=== PATIENT | male | born 1955 | race African-American/Black ===

== ENCOUNTER 2017-11-10 08:29 | Emergency (ER) | payer SELFPAY ==
[~2017-11-10] VITALS: Ht 172.7 cm; Wt 110.0 kg
[2017-11-10] MEDS ORDERED: METHYLPREDNISOLONE SOD SUCC 125 MG/2 ML VIAL IM ONE (09:45)
[2017-11-10 10:00] VITALS: BP 178/79
== END 2017-11-10 10:07 | disposition home or self-care (01) ==
LOC: ER 09:48
DX: L40.9 Psoriasis, unspecified (principal); I11.0 Hypertensive heart disease with heart failure; I50.9 Heart failure, unspecified; F17.200 Nicotine dependence, unspecified, uncomplicated; Z98.890 Other specified postprocedural states
CPT/HCPCS: 96372; 99283; J2930

== ENCOUNTER 2017-12-20 02:18 | Inpatient (IN) | payer SELFPAY ==
[~2017-12-20] VITALS: Ht 172.7 cm; Wt 105.7 kg
[2017-12-20] VITALS (8 sets, daily range): BP systolic 139–177; BP diastolic 86–123
[2017-12-20] MEDS ORDERED: FUROSEMIDE 40MG/4ML VIAL IVP ONE (02:30)
[2017-12-20 03:13] LABS: CHLORIDE 113 mEq/L (98-107)
[2017-12-20 03:29] LABS: BASOPHILS % 0.2 % (0.0-2.0); EOSINOPHILS % 3.1 % (0.0-5.0); HEMATOCRIT. 47.7 % (42.0-52.0); HEMOGLOBIN. 16.1 g/dL (14.0-18.0); LYMPHOCYTES % 18.9 % (20.0-50.0); MEAN CORPUSCULAR HEMOGLOBIN 31.4 pg (28.0-32.0); MEAN CORPUSCULAR VOLUME 92.7 fL (80.0-94.0); MEAN PLATELET VOLUME 9.3 fl (7.4-10.4); MONOCYTES % 7.2 % (2.0-8.0); NEUTROPHILS % 70.6 % (40.0-76.0); PLATELET 195 x1000/uL (130-400); RED BLOOD CELL COUNT 5.15 mill/uL (4.7-6.1); RED CELL DISTRIBUTION WIDTH 15.3 % (11.6-14.6)
[2017-12-20] MEDS ORDERED: ASPIRIN 325MG EC TABLET PO SCH (05:30)
[2017-12-20] MEDS ORDERED: ENOXAPARIN 120MG/0.8ML SYR SUBCUT SCH (06:00)
[2017-12-20] MEDS ORDERED: IPRATROPIUM/ALBUTEROL 0.5-3(2.5)MG/3ML NEB HHN PRN (09:00)
[2017-12-20] MEDS ORDERED: ACETAMINOPHEN 325MG TABLET PO PRN (09:00)
[2017-12-20] MEDS ORDERED: ONDANSETRON HCL 4MG/2ML INJ IV PRN (09:00)
[2017-12-20 10:44] LABS: CREATINE KINASE MB FRACTION 9.7 ng/mL (0.5-3.6)
[2017-12-20] MEDS ORDERED: LOSARTAN POTASSIUM 25 MG TABLET PO SCH (11:15)
[2017-12-20] MEDS: FUROSEMIDE 40MG/4ML VIAL IVP SCH ×2 (11:36→17:08)
[2017-12-20 13:46] LABS: CLARITY URINE CLEAR (CLEAR); COLOR URINE YELLOW (YELLOW); KETONES URINE NEGATIVE (NEGATIVE); LEUKOCYTE ESTERASE URINE NEGATIVE (NEGATIVE); NITRITE URINE NEGATIVE (NEGATIVE); OCCULT BLOOD URINE NEGATIVE (NEGATIVE); PROTEIN URINE NEGATIVE (NEGATIVE); SPECIFIC GRAVITY URINE 1.008 (1.005-1.030); UROBILINOGEN URINE 0.2 E.U./dL (0.2-1.0)
[2017-12-20] MEDS: NICOTINE 21MG PATCH TD SCH (14:23)
[2017-12-20] MEDS: PANTOT AC/MIN OIL/PET HY-PHL OINT 52.5GM (AQUAPHOR) TOP SCH (14:24)
[2017-12-20 14:49] LABS: *AMPHETAMINES SCREEN URINE NEGATIVE (NEGATIVE); *BARBITURATES SCREEN URINE NEGATIVE (NEGATIVE); *BENZODIAZEPINES SCREEN URINE NEGATIVE (NEGATIVE); *COCAINE SCREEN URINE NEGATIVE (NEGATIVE); CANNABINOID URINE SCREEN NEGATIVE (NEGATIVE); METHADONE URINE SCREEN NEGATIVE (NEGATIVE); OPIATES URINE SCREEN NEGATIVE (NEGATIVE); PHENCYCLIDINE URINE SCREEN NEGATIVE (NEGATIVE)
[2017-12-20] MEDS: THIAMINE HCL 100MG TABLET PO SCH (14:54)
[2017-12-20] MEDS: FOLIC ACID 1MG TABLET PO SCH (14:55)
[2017-12-20] MEDS ORDERED: CLONIDINE 0.1MG TABLET PO PRN (16:45)
[2017-12-20] MEDS: LOSARTAN POTASSIUM 50 MG TABLET PO SCH (21:49)
[2017-12-21] VITALS (12 sets, daily range): BP systolic 119–162; BP diastolic 69–104
[2017-12-21 07:33] LABS: BASOPHILS % 0.4 % (0.0-2.0); HEMATOCRIT. 48.3 % (42.0-52.0); HEMOGLOBIN. 15.8 g/dL (14.0-18.0); LYMPHOCYTES % 20.8 % (20.0-50.0); MEAN CORPUSCULAR HEMOGLOBIN 30.5 pg (28.0-32.0); MEAN CORPUSCULAR VOLUME 93.4 fL (80.0-94.0); MEAN PLATELET VOLUME 9.5 fl (7.4-10.4); MONOCYTES % 11.8 % (2.0-8.0); PLATELET 161 x1000/uL (130-400); RED BLOOD CELL COUNT 5.17 mill/uL (4.7-6.1); RED CELL DISTRIBUTION WIDTH 14.9 % (11.6-14.6)
[2017-12-21 07:41] LABS: CHLORIDE 107 mEq/L (98-107)
[2017-12-21] MEDS ORDERED: POTASSIUM CHLORIDE 20MEQ TABLET SR PO SCH (09:00)
[2017-12-21] MEDS: PANTOT AC/MIN OIL/PET HY-PHL OINT 52.5GM (AQUAPHOR) TOP SCH (09:08)
[2017-12-21] MEDS: NICOTINE 21MG PATCH TD SCH (09:09)
[2017-12-21] MEDS: FOLIC ACID 1MG TABLET PO SCH (09:09)
[2017-12-21] MEDS: LOSARTAN POTASSIUM 50 MG TABLET PO SCH ×2 (09:09→20:38)
[2017-12-21] MEDS: THIAMINE HCL 100MG TABLET PO SCH (09:09)
[2017-12-21] MEDS: FUROSEMIDE 40MG/4ML VIAL IVP SCH ×2 (09:09→16:43)
[2017-12-21] MEDS: MULTIVITAMINS,THER W-MINERALS TABLET PO SCH (09:09)
[2017-12-21] MEDS ORDERED: POTASSIUM CHLORIDE 20MEQ TABLET SR PO NR (11:00)
[2017-12-21] MEDS: POTASSIUM CHLORIDE 20MEQ TABLET SR PO SCH (16:43)
[2017-12-22] VITALS (7 sets, daily range): BP systolic 119–134; BP diastolic 51–90
[2017-12-22] MEDS: FUROSEMIDE 40MG/4ML VIAL IVP SCH (07:15)
[2017-12-22] MEDS: FOLIC ACID 1MG TABLET PO SCH (08:42)
[2017-12-22] MEDS: POTASSIUM CHLORIDE 20MEQ TABLET SR PO SCH (08:42)
[2017-12-22] MEDS: THIAMINE HCL 100MG TABLET PO SCH (08:43)
[2017-12-22] MEDS: LOSARTAN POTASSIUM 50 MG TABLET PO SCH (08:43)
[2017-12-22] MEDS: MULTIVITAMINS,THER W-MINERALS TABLET PO SCH (08:43)
[2017-12-22] MEDS: PANTOT AC/MIN OIL/PET HY-PHL OINT 52.5GM (AQUAPHOR) TOP SCH (08:43)
[2017-12-22] MEDS: NICOTINE 21MG PATCH TD SCH (08:43)
[2017-12-22] MEDS ORDERED: REGADENOSON 0.4 MG/5 ML IV ONE ×2 (09:30→10:32)
[2017-12-22 09:55] LABS: HEMATOCRIT. 48.7 % (42.0-52.0); HEMOGLOBIN. 15.8 g/dL (14.0-18.0); MEAN CORPUSCULAR HEMOGLOBIN 30.5 pg (28.0-32.0); MEAN CORPUSCULAR VOLUME 93.9 fL (80.0-94.0); MEAN PLATELET VOLUME 9.9 fl (7.4-10.4); PLATELET 173 x1000/uL (130-400); RED BLOOD CELL COUNT 5.18 mill/uL (4.7-6.1); RED CELL DISTRIBUTION WIDTH 14.8 % (11.6-14.6)
[2017-12-22 10:10] LABS: CHLORIDE 107 mEq/L (98-107)
[2017-12-22 10:40] LABS: CREATINE KINASE 68 IU/L (39-308); CREATINE KINASE MB FRACTION 1.1 ng/mL (0.5-3.6)
[2017-12-22 13:31] LABS: PLATELET ESTIMATE NORMAL
[2017-12-22] MEDS ORDERED: FUROSEMIDE 40MG TABLET PO SCH (21:00)
== END 2017-12-22 15:00 | disposition home or self-care (01) | DRG 190 ==
LOC: ER 02:23 → 3WST 05:22 → EDBEDREQ 05:25 → EDBEDREQSVC 05:25 → EDBEDREQTM 05:25 → ENRESERV 09:10
PROVIDERS: ADMIT Internal Medicine Nephrology; ATTEND Internal Medicine Nephrology
PROC: 5A09357 Assistance with Respiratory Ventilation, Less than 24 Consecutive Hours, Continuous Positive Airway Pressure (ICD-10-PCS; principal; 2017-12-20)
DX: I21.4 Non-ST elevation (NSTEMI) myocardial infarction (principal); J96.00 Acute respiratory failure, unspecified whether with hypoxia or hypercapnia; I50.43 Acute on chronic combined systolic (congestive) and diastolic (congestive) heart failure; E44.0 Moderate protein-calorie malnutrition; I11.0 Hypertensive heart disease with heart failure; E87.8 Other disorders of electrolyte and fluid balance, not elsewhere classified; E66.9 Obesity, unspecified; F10.10 Alcohol abuse, uncomplicated; F17.210 Nicotine dependence, cigarettes, uncomplicated; I27.20 Pulmonary hypertension, unspecified; I42.9 Cardiomyopathy, unspecified; Z68.35 Body mass index [BMI] 35.0-35.9, adult; Z71.6 Tobacco abuse counseling; Z71.3 Dietary counseling and surveillance
CPT/HCPCS: 36415; 71045; 78452; 80048; 80061; 80305; 82550; 82553; 83036; 83735; 83880; 84443; 84484; 85379; 93005; 93017; 93306; 93970; 94660; 96372; 96374; 99285; A9500; J1650; J1940; J2785

== ENCOUNTER 2018-02-01 03:54 | Inpatient (IN) | payer MEDICAID, OTHER ==
[~2018-02-01] VITALS: Ht 170.2 cm; Wt 98.4 kg
[2018-02-01 05:22] LABS: BASOPHILS % 0.1 % (0.0-2.0); EOSINOPHILS % 1.7 % (0.0-5.0); HEMATOCRIT. 48.9 % (42.0-52.0); LYMPHOCYTES % 5.9 % (20.0-50.0); MEAN CORPUSCULAR HEMOGLOBIN 30.4 pg (28.0-32.0); MEAN PLATELET VOLUME 10.1 fl (7.4-10.4); MONOCYTES % 8.7 % (2.0-8.0); NEUTROPHILS % 83.6 % (40.0-76.0); PLATELET 140 x1000/uL (130-400); RED BLOOD CELL COUNT 5.25 mill/uL (4.7-6.1); RED CELL DISTRIBUTION WIDTH 14.5 % (11.6-14.6)
[2018-02-01 05:25] LABS: CHLORIDE 109 mEq/L (98-107); INR 1.1; PROTHROMBIN TIME 11.3 sec (9.1-11.1)
[2018-02-01] MEDS ORDERED: FUROSEMIDE 100MG/10ML VIAL IVP ONE (05:45)
[2018-02-01 08:45] VITALS: BP 144/96
[2018-02-01] MEDS ORDERED: IPRATROPIUM/ALBUTEROL 0.5-3(2.5)MG/3ML NEB HHN PRN (09:00)
[2018-02-01] MEDS ORDERED: ACETAMINOPHEN 325MG TABLET PO PRN (09:00)
[2018-02-01] MEDS ORDERED: ONDANSETRON HCL 4MG/2ML INJ IV PRN (09:00)
[2018-02-01] MEDS: FUROSEMIDE 40MG/4ML VIAL IVP SCH ×2 (10:31→18:12)
[2018-02-01] MEDS: CARVEDILOL 6.25 MG TABLET PO SCH ×2 (10:31→21:56)
[2018-02-01] MEDS: LOSARTAN POTASSIUM 25 MG TABLET PO SCH (10:32)
[2018-02-01] MEDS: ENOXAPARIN 30MG/0.3ML SYR SUBCUT SCH ×2 (10:33→21:56)
[2018-02-01 12:00] VITALS: BP 130/89
[2018-02-01] MEDS ORDERED: POTASSIUM CHLORIDE 20MEQ/PACKET PO NR (14:15)
[2018-02-01 15:07] LABS: CLARITY URINE CLEAR (CLEAR); COLOR URINE YELLOW (YELLOW); KETONES URINE NEGATIVE (NEGATIVE); LEUKOCYTE ESTERASE URINE NEGATIVE (NEGATIVE); NITRITE URINE NEGATIVE (NEGATIVE); OCCULT BLOOD URINE NEGATIVE (NEGATIVE); PH URINE 5.5 (4.5-8.0); PROTEIN URINE NEGATIVE (NEGATIVE); SPECIFIC GRAVITY URINE 1.006 (1.005-1.030); UROBILINOGEN URINE 0.2 E.U./dL (0.2-1.0)
[2018-02-01 15:19] LABS: *AMPHETAMINES SCREEN URINE NEGATIVE (NEGATIVE); *BARBITURATES SCREEN URINE NEGATIVE (NEGATIVE); *BENZODIAZEPINES SCREEN URINE NEGATIVE (NEGATIVE)
[2018-02-01 15:20] LABS: *COCAINE SCREEN URINE NEGATIVE (NEGATIVE); CANNABINOID URINE SCREEN NEGATIVE (NEGATIVE); METHADONE URINE SCREEN NEGATIVE (NEGATIVE); OPIATES URINE SCREEN NEGATIVE (NEGATIVE); PHENCYCLIDINE URINE SCREEN NEGATIVE (NEGATIVE)
[2018-02-01 16:00] VITALS: BP 117/77
[2018-02-01] MEDS: POTASSIUM CHLORIDE 20MEQ TABLET SR PO SCH (17:00)
[2018-02-01 20:07] VITALS: BP 116/65
[2018-02-02] VITALS: BP 180/96
[2018-02-02 04:00] VITALS: BP 111/66
[2018-02-02 08:00] VITALS: BP 122/76
[2018-02-02 08:38] LABS: HEMATOCRIT. 48.7 % (42.0-52.0); MEAN CORPUSCULAR HEMOGLOBIN 30.6 pg (28.0-32.0); MEAN CORPUSCULAR VOLUME 93.1 fL (80.0-94.0); MEAN PLATELET VOLUME 10.5 fl (7.4-10.4); PLATELET 140 x1000/uL (130-400); RED BLOOD CELL COUNT 5.23 mill/uL (4.7-6.1); RED CELL DISTRIBUTION WIDTH 14.1 % (11.6-14.6)
[2018-02-02 08:46] LABS: CHLORIDE 107 mEq/L (98-107)
[2018-02-02 08:54] LABS: HDL CHOLESTEROL 41 mg/dL (40-59); LDL CHOLESTEROL 66 mg/dL (5-100)
[2018-02-02 08:55] LABS: CREATINE KINASE 52 IU/L (39-308)
[2018-02-02 08:56] LABS: CREATINE KINASE MB FRACTION < 1.0 ng/mL (0.5-3.6)
[2018-02-02] MEDS: POTASSIUM CHLORIDE 20MEQ TABLET SR PO SCH ×2 (09:45→17:00)
[2018-02-02] MEDS: LOSARTAN POTASSIUM 25 MG TABLET PO SCH (09:45)
[2018-02-02] MEDS: CARVEDILOL 6.25 MG TABLET PO SCH ×2 (09:46→21:09)
[2018-02-02] MEDS: ENOXAPARIN 30MG/0.3ML SYR SUBCUT SCH ×2 (09:47→21:10)
[2018-02-02] MEDS: FUROSEMIDE 40MG/4ML VIAL IVP SCH ×2 (09:48→17:45)
[2018-02-02 12:00] VITALS: BP 102/61
[2018-02-02 13:20] LABS: PLATELET ESTIMATE NORMAL
[2018-02-02 16:00] VITALS: BP 108/67
[2018-02-02] MEDS ORDERED: POTASSIUM CHLORIDE 20MEQ TABLET SR PO NR (16:15)
[2018-02-02] MEDS ORDERED: HYDROCODONE/ACETAMINOPHEN 5/325MG TABLET PO PRN (17:00)
[2018-02-02 20:00] VITALS: BP 110/65
[2018-02-03] VITALS: BP 115/65
[2018-02-03 04:00] VITALS: BP 105/62
[2018-02-03 06:42] LABS: CHLORIDE 106 mEq/L (98-107)
[2018-02-03 06:44] LABS: HEMATOCRIT. 49.1 % (42.0-52.0); HEMOGLOBIN. 16.1 g/dL (14.0-18.0); MEAN CORPUSCULAR HEMOGLOBIN 30.6 pg (28.0-32.0); MEAN CORPUSCULAR VOLUME 93.1 fL (80.0-94.0); MEAN PLATELET VOLUME 10.6 fl (7.4-10.4); PLATELET 156 x1000/uL (130-400); RED BLOOD CELL COUNT 5.27 mill/uL (4.7-6.1)
[2018-02-03 08:00] VITALS: BP 113/58
[2018-02-03] MEDS: LOSARTAN POTASSIUM 25 MG TABLET PO SCH (09:00)
[2018-02-03] MEDS: CARVEDILOL 6.25 MG TABLET PO SCH ×3 (10:14→21:48)
[2018-02-03] MEDS: POTASSIUM CHLORIDE 20MEQ TABLET SR PO SCH ×2 (10:14→17:39)
[2018-02-03] MEDS: ENOXAPARIN 30MG/0.3ML SYR SUBCUT SCH ×2 (10:14→21:48)
[2018-02-03] MEDS: FUROSEMIDE 40MG/4ML VIAL IVP SCH (10:14)
[2018-02-03 12:00] VITALS: BP 110/62
[2018-02-03 16:00] VITALS: BP 107/67
[2018-02-03] MEDS: FUROSEMIDE 40MG TABLET PO SCH (17:39)
[2018-02-03 17:53] LABS: PLATELET ESTIMATE NORMAL
[2018-02-03 20:00] VITALS: BP 148/92
[2018-02-04] VITALS: BP 125/72
[2018-02-04 04:00] VITALS: BP 111/65
[2018-02-04] MEDS: CARVEDILOL 6.25 MG TABLET PO SCH ×2 (06:30→14:41)
[2018-02-04] MEDS: FUROSEMIDE 40MG TABLET PO SCH (06:30)
[2018-02-04 08:00] VITALS: BP 118/65
[2018-02-04] MEDS: POTASSIUM CHLORIDE 20MEQ TABLET SR PO SCH (08:39)
[2018-02-04] MEDS: ENOXAPARIN 30MG/0.3ML SYR SUBCUT SCH (08:39)
[2018-02-04] MEDS: LOSARTAN POTASSIUM 25 MG TABLET PO SCH (08:39)
[2018-02-04 11:10] VITALS: BP 118/68
[2018-02-04 14:20] VITALS: BP 118/68
== END 2018-02-04 15:00 | disposition home or self-care (01) | DRG 194 ==
LOC: ER 03:54 → 5EST 05:41 → EDBEDREQ 05:43 → ENRESERV 07:05 → 5WST 15:29
PROVIDERS: ADMIT Internal Medicine; ATTEND Internal Medicine
PROC: 5A09357 Assistance with Respiratory Ventilation, Less than 24 Consecutive Hours, Continuous Positive Airway Pressure (ICD-10-PCS; principal; 2018-02-01)
DX: I11.0 Hypertensive heart disease with heart failure (principal); I47.2 Ventricular tachycardia; E87.2 Acidosis; E87.8 Other disorders of electrolyte and fluid balance, not elsewhere classified; I27.20 Pulmonary hypertension, unspecified; E44.1 Mild protein-calorie malnutrition; I50.23 Acute on chronic systolic (congestive) heart failure; I42.9 Cardiomyopathy, unspecified; E66.9 Obesity, unspecified; I35.1 Nonrheumatic aortic (valve) insufficiency; J06.9 Acute upper respiratory infection, unspecified; F10.10 Alcohol abuse, uncomplicated; F17.200 Nicotine dependence, unspecified, uncomplicated; Z68.34 Body mass index [BMI] 34.0-34.9, adult; Z71.6 Tobacco abuse counseling
CPT/HCPCS: 36415; 71045; 80061; 80305; 82550; 82553; 83605; 83735; 83880; 84145; 84443; 84484; 85379; 87804; 93005; 94660; 96374; 97162; 99291; J1650; J1940

== ENCOUNTER 2018-03-24 23:12 | Inpatient (IN) | payer MEDICAID, OTHER ==
[~2018-03-24] VITALS: Ht 170.2 cm; Wt 101.3 kg
[2018-03-24] MEDS ORDERED: FUROSEMIDE 40MG/4ML VIAL IV ONE (23:45)
[2018-03-25] VITALS (7 sets, daily range): BP systolic 141–163; BP diastolic 88–98
[2018-03-25 00:14] LABS: BASOPHILS % 0.2 % (0.0-2.0); EOSINOPHILS % 0.3 % (0.0-5.0); HEMATOCRIT. 45.8 % (42.0-52.0); LYMPHOCYTES % 9.1 % (20.0-50.0); MEAN CORPUSCULAR HEMOGLOBIN 29.5 pg (28.0-32.0); MEAN CORPUSCULAR VOLUME 89.9 fL (80.0-94.0); MEAN PLATELET VOLUME 9.5 fl (7.4-10.4); MONOCYTES % 8.6 % (2.0-8.0); NEUTROPHILS % 81.8 % (40.0-76.0); PLATELET 141 x1000/uL (130-400); RED BLOOD CELL COUNT 5.09 mill/uL (4.7-6.1); RED CELL DISTRIBUTION WIDTH 14.9 % (11.6-14.6)
[2018-03-25 00:35] LABS: CHLORIDE 111 mEq/L (98-107)
[2018-03-25] MEDS ORDERED: POTASSIUM CHLORIDE 20MEQ TABLET SR PO ONE (01:45)
[2018-03-25] MEDS ORDERED: IPRATROPIUM/ALBUTEROL 0.5-3(2.5)MG/3ML NEB INH PRN (02:45)
[2018-03-25] MEDS ORDERED: ACETAMINOPHEN 325MG TABLET PO PRN (02:45)
[2018-03-25] MEDS ORDERED: MAGNESIUM/ALUMINUM HYDROXIDE/SIMETHICONE 30ML UDC PO PRN (02:45)
[2018-03-25] MEDS ORDERED: CLONIDINE 0.1MG TABLET PO PRN (02:45)
[2018-03-25] MEDS ORDERED: ONDANSETRON HCL 4MG/2ML INJ IV PRN (02:45)
[2018-03-25] MEDS ORDERED: LEVOFLOXACIN 500MG PREMIX 100 ML IV SCH (05:00)
[2018-03-25] MEDS: POTASSIUM CHLORIDE 20MEQ TABLET SR PO SCH ×2 (10:53→17:15)
[2018-03-25] MEDS ORDERED: IPRATROPIUM/ALBUTEROL 0.5-3(2.5)MG/3ML NEB HHN SCH (12:30)
[2018-03-25] MEDS: GUAIFENESIN 600MG ER TABLET PO SCH ×2 (13:12→19:54)
[2018-03-25] MEDS: FUROSEMIDE 40MG/4ML VIAL IVP SCH ×2 (13:12→19:54)
[2018-03-25] MEDS: CARVEDILOL 12.5MG TABLET PO SCH ×2 (13:13→19:54)
[2018-03-25] MEDS: LOSARTAN POTASSIUM 25 MG TABLET PO SCH (13:13)
[2018-03-25] MEDS: SODIUM CHLORIDE 0.9% INJ 3ML FLUSH IVF SCH ×2 (13:16→22:42)
[2018-03-25] MEDS ORDERED: LORAZEPAM 2MG/ML CPJ IV PRN (13:30)
[2018-03-25] MEDS: METHYLPREDNISOLONE SOD SUCC 40 MG/ML VIAL IV SCH ×2 (15:10→22:41)
[2018-03-25] MEDS: FOLIC ACID 1MG TABLET PO SCH (15:10)
[2018-03-25] MEDS: FLUTICASONE PROPIONATE 50MCG/SPRAY BOTTLE BOTHNSTRLS SCH ×2 (15:11→22:42)
[2018-03-25] MEDS: MULTIVITAMINS,THER W-MINERALS TABLET PO SCH (15:11)
[2018-03-25] MEDS: THIAMINE HCL 100MG TABLET PO SCH (15:11)
[2018-03-25] MEDS: NICOTINE 21MG PATCH TD SCH (15:11)
[2018-03-25] MEDS: AZITHROMYCIN 500 MG in DEXT 5% WATER 250 ML IV SCH (15:12)
[2018-03-25] MEDS: CEFTRIAXONE 1 G PREMIX 50 ML IV SCH (15:12)
[2018-03-25] MEDS: IPRATROPIUM/ALBUTEROL 0.5-3(2.5)MG/3ML NEB HHN SCH ×2 (15:41→20:20)
[2018-03-25] MEDS: ACETYLCYSTEINE 200MG/ML 20% VIAL 4ML INH SCH (15:42)
[2018-03-26] VITALS (12 sets, daily range): BP systolic 107–165; BP diastolic 46–99
[2018-03-26] MEDS: IPRATROPIUM/ALBUTEROL 0.5-3(2.5)MG/3ML NEB HHN SCH ×6 (00:17→20:33)
[2018-03-26 05:26] LABS: BASOPHILS % 0.1 % (0.0-2.0); HEMATOCRIT. 47.3 % (42.0-52.0); HEMOGLOBIN. 15.7 g/dL (14.0-18.0); LYMPHOCYTES % 23.4 % (20.0-50.0); MEAN CORPUSCULAR HEMOGLOBIN 29.8 pg (28.0-32.0); MEAN CORPUSCULAR VOLUME 89.4 fL (80.0-94.0); MEAN PLATELET VOLUME 9.4 fl (7.4-10.4); MONOCYTES % 4.2 % (2.0-8.0); NEUTROPHILS % 72.3 % (40.0-76.0); PLATELET 133 x1000/uL (130-400); RED BLOOD CELL COUNT 5.29 mill/uL (4.7-6.1); RED CELL DISTRIBUTION WIDTH 14.8 % (11.6-14.6)
[2018-03-26 05:50] LABS: CHLORIDE 105 mEq/L (98-107)
[2018-03-26] MEDS: METHYLPREDNISOLONE SOD SUCC 40 MG/ML VIAL IV SCH (06:39)
[2018-03-26] MEDS: SODIUM CHLORIDE 0.9% INJ 3ML FLUSH IVF SCH ×3 (06:39→21:13)
[2018-03-26] MEDS: FUROSEMIDE 40MG/4ML VIAL IVP SCH ×2 (06:39→18:15)
[2018-03-26] MEDS: THIAMINE HCL 100MG TABLET PO SCH (08:09)
[2018-03-26] MEDS: POTASSIUM CHLORIDE 20MEQ TABLET SR PO SCH (08:09)
[2018-03-26] MEDS: FOLIC ACID 1MG TABLET PO SCH (08:09)
[2018-03-26] MEDS: GUAIFENESIN 600MG ER TABLET PO SCH ×2 (08:09→21:01)
[2018-03-26] MEDS: NICOTINE 21MG PATCH TD SCH (08:09)
[2018-03-26] MEDS: MULTIVITAMINS,THER W-MINERALS TABLET PO SCH (08:09)
[2018-03-26] MEDS: LOSARTAN POTASSIUM 25 MG TABLET PO SCH (08:10)
[2018-03-26] MEDS: CARVEDILOL 12.5MG TABLET PO SCH ×2 (08:11→21:03)
[2018-03-26] MEDS: FLUTICASONE PROPIONATE 50MCG/SPRAY BOTTLE BOTHNSTRLS SCH ×2 (08:11→21:00)
[2018-03-26] MEDS: ACETYLCYSTEINE 200MG/ML 20% VIAL 4ML INH SCH ×2 (08:25→16:26)
[2018-03-26 11:19] LABS: CLARITY URINE CLEAR (CLEAR); COLOR URINE YELLOW (YELLOW); KETONES URINE NEGATIVE (NEGATIVE); LEUKOCYTE ESTERASE URINE NEGATIVE (NEGATIVE); NITRITE URINE NEGATIVE (NEGATIVE); OCCULT BLOOD URINE NEGATIVE (NEGATIVE); PROTEIN URINE TRACE (NEGATIVE); SPECIFIC GRAVITY URINE 1.008 (1.005-1.030); UROBILINOGEN URINE 0.2 E.U./dL (0.2-1.0)
[2018-03-26] MEDS: CEFTRIAXONE 1 G PREMIX 50 ML IV SCH (15:01)
[2018-03-26] MEDS: AZITHROMYCIN 500 MG in DEXT 5% WATER 250 ML IV SCH (15:01)
[2018-03-26] MEDS: PREDNISONE 20MG TABLET PO SCH (18:15)
[2018-03-26] MEDS: ENOXAPARIN 30MG/0.3ML SYR SUBCUT SCH (21:01)
[2018-03-27] VITALS (11 sets, daily range): BP systolic 114–156; BP diastolic 75–96
[2018-03-27] MEDS: IPRATROPIUM/ALBUTEROL 0.5-3(2.5)MG/3ML NEB HHN SCH ×4 (00:15→12:27)
[2018-03-27 06:15] LABS: BASOPHILS % 0.2 % (0.0-2.0); HEMATOCRIT. 49.3 % (42.0-52.0); HEMOGLOBIN. 16.3 g/dL (14.0-18.0); LYMPHOCYTES % 23.7 % (20.0-50.0); MEAN CORPUSCULAR HEMOGLOBIN 29.5 pg (28.0-32.0); MEAN CORPUSCULAR VOLUME 89.2 fL (80.0-94.0); MEAN PLATELET VOLUME 9.9 fl (7.4-10.4); MONOCYTES % 10.3 % (2.0-8.0); NEUTROPHILS % 65.8 % (40.0-76.0); PLATELET 144 x1000/uL (130-400); RED BLOOD CELL COUNT 5.52 mill/uL (4.7-6.1); RED CELL DISTRIBUTION WIDTH 14.4 % (11.6-14.6)
[2018-03-27] MEDS: FUROSEMIDE 40MG/4ML VIAL IVP SCH (06:51)
[2018-03-27] MEDS: SODIUM CHLORIDE 0.9% INJ 3ML FLUSH IVF SCH ×2 (06:51→13:11)
[2018-03-27 07:38] LABS: CHLORIDE 104 mEq/L (98-107)
[2018-03-27] MEDS: THIAMINE HCL 100MG TABLET PO SCH (08:23)
[2018-03-27] MEDS: FOLIC ACID 1MG TABLET PO SCH (08:23)
[2018-03-27] MEDS: NICOTINE 21MG PATCH TD SCH (08:24)
[2018-03-27] MEDS: CARVEDILOL 12.5MG TABLET PO SCH (08:24)
[2018-03-27] MEDS: LOSARTAN POTASSIUM 25 MG TABLET PO SCH (08:24)
[2018-03-27] MEDS: GUAIFENESIN 600MG ER TABLET PO SCH (08:24)
[2018-03-27] MEDS: PREDNISONE 20MG TABLET PO SCH (08:24)
[2018-03-27] MEDS: MULTIVITAMINS,THER W-MINERALS TABLET PO SCH (08:24)
[2018-03-27] MEDS: ENOXAPARIN 30MG/0.3ML SYR SUBCUT SCH (08:25)
[2018-03-27] MEDS: FLUTICASONE PROPIONATE 50MCG/SPRAY BOTTLE BOTHNSTRLS SCH (08:25)
[2018-03-27] MEDS ORDERED: POTASSIUM CHLORIDE 20MEQ TABLET SR PO SCH (09:00)
[2018-03-27] MEDS: ACETYLCYSTEINE 200MG/ML 20% VIAL 4ML INH SCH (09:07)
[2018-03-27] MEDS ORDERED: INFLUENZA VIRUS VACCINE(AFLURIA) 0.5ML SYR IM ONE (12:45)
[2018-03-27] MEDS: AZITHROMYCIN 500 MG in DEXT 5% WATER 250 ML IV SCH (13:11)
[2018-03-27] MEDS: CEFTRIAXONE 1 G PREMIX 50 ML IV SCH (13:11)
[2018-03-27] MEDS ORDERED: PNEUMOCOCCAL 23-VAL P-SAC VAC 0.5 ML IM ONE (13:15)
[2018-03-27] MEDS ORDERED: PREDNISONE 20MG TABLET PO SCH (17:00)
[2018-03-27] MEDS ORDERED: FUROSEMIDE 40MG TABLET PO SCH (21:00)
[2018-03-28] MEDS ORDERED: PREDNISONE 20MG TABLET PO SCH (09:00)
[2018-03-28] MEDS ORDERED: AZITHROMYCIN 500 MG TABLET PO SCH (09:00)
== END 2018-03-27 17:18 | disposition home health service (06) | DRG 140 ==
LOC: ER 23:30 → EDBEDREQ 03-25 01:38 → EDBEDREQSVC 03-25 01:38 → EDBEDREQTM 03-25 01:38 → EDBEDREQDT 03-25 01:38 → 5EST 03-25 10:18 → ENRESERV 03-25 10:18
PROVIDERS: ADMIT Internal Medicine; ATTEND Internal Medicine
PROC: 5A09357 Assistance with Respiratory Ventilation, Less than 24 Consecutive Hours, Continuous Positive Airway Pressure (ICD-10-PCS; principal; 2018-03-24)
DX: J44.1 Chronic obstructive pulmonary disease with (acute) exacerbation (principal); J96.00 Acute respiratory failure, unspecified whether with hypoxia or hypercapnia; I50.43 Acute on chronic combined systolic (congestive) and diastolic (congestive) heart failure; I27.20 Pulmonary hypertension, unspecified; E46 Unspecified protein-calorie malnutrition; R65.10 Systemic inflammatory response syndrome (SIRS) of non-infectious origin without acute organ dysfunction; I42.9 Cardiomyopathy, unspecified; I11.0 Hypertensive heart disease with heart failure; E87.6 Hypokalemia; Z91.14 Patient's other noncompliance with medication regimen; E66.9 Obesity, unspecified; E11.9 Type 2 diabetes mellitus without complications; F10.10 Alcohol abuse, uncomplicated; F17.210 Nicotine dependence, cigarettes, uncomplicated; I50.82 Biventricular heart failure; J20.9 Acute bronchitis, unspecified; Z68.35 Body mass index [BMI] 35.0-35.9, adult
CPT/HCPCS: 36415; 71045; 80048; 83735; 83880; 84484; 85379; 87070; 87804; 90686; 90732; 93005; 93306; 93970; 94640; 94660; 96365; 96366; 96375; 99291; J0456; J0696; J1650; J1940; J1956; J2920; J7050; J7060; J7512; J7608; J7620

== ENCOUNTER 2018-09-07 02:31 | Inpatient (IN) | payer MEDICAID ==
[~2018-09-07] VITALS: Ht 165.1 cm; Wt 107.2 kg
[2018-09-07] VITALS (11 sets, daily range): BP systolic 110–136; BP diastolic 61–97
[~2018-09-07 02:31] MED LIST: FURO-151 PO
[2018-09-07] MEDS ORDERED: SODIUM CHLORIDE 0.9% 1,000 ML IV ONE (02:51)
[2018-09-07] MEDS ORDERED: DILTIAZEM HCL 5MG/ML 5ML VIAL IV ONE ×2 (03:00→03:30)
[2018-09-07 03:09] LABS: BASOPHILS % 0.8 % (0.0-2.0); EOSINOPHILS % 1.1 % (0.0-5.0); HEMATOCRIT. 42.9 % (42.0-52.0); HEMOGLOBIN. 14.2 g/dL (14.0-18.0); LYMPHOCYTES % 28.8 % (20.0-50.0); MEAN CORPUSCULAR HEMOGLOBIN 29.4 pg (28.0-32.0); MEAN CORPUSCULAR VOLUME 88.7 fL (80.0-94.0); MEAN PLATELET VOLUME 9.5 fl (7.4-10.4); MONOCYTES % 9.4 % (2.0-8.0); NEUTROPHILS % 59.9 % (40.0-76.0); PLATELET 151 x1000/uL (130-400); RED BLOOD CELL COUNT 4.84 mill/uL (4.7-6.1); RED CELL DISTRIBUTION WIDTH 13.8 % (11.6-14.6)
[2018-09-07 03:12] LABS: CHLORIDE 115 mEq/L (98-107)
[2018-09-07 03:15] LABS: INR 1.2; PARTIAL THROMBOPLASTIN TIME 30.8 sec (23.4-31.0); PROTHROMBIN TIME 11.9 sec (9.6-11.0)
[2018-09-07] MEDS ORDERED: DILTIAZEM HCL 125 MG in DEXT 5% WATER 100 ML IV ONE ×2 (03:30→03:45)
[2018-09-07] MEDS ORDERED: DIGOXIN 500MCG/2ML AMP IV ONE (03:45)
[2018-09-07] MEDS ORDERED: FUROSEMIDE 40MG/4ML VIAL IVP SCH (10:30)
[2018-09-07 11:25] LABS: BG BASE EXCESS -5.9 mmol/L (-2.0-2.0); BG BILEVEL POS AIRWAY PRESSURE 15/5; BG CARBOXYHEMOGLOBIN 0.4 % (0.5-1.5); BG DEOXYHEMOGLOBIN 1.1 % (0.0-5.0); BG FRACTION INSPIRED OXYGEN 100; BG HCO3 ACT 18.3 mmol/L (22.0-26.0); BG METHEMOGLOBIN 0.3 % (0.0-1.5); BG OXYGEN SATURATION 98.9 % (92.0-98.5); BG OXYHEMOGLOBIN 98.2 % (94.0-97.0); BG PCO2 32.1 mmHg (35.0-45.0); BG PH 7.373 (7.350-7.450); BG PO2 157.7 mmHg (75.0-100.0); BG SAMPLE SITE RIGHT RADIAL; BG VENT MODE MASK - BIPAP; BG VENT RATE 16 set
[2018-09-07] MEDS ORDERED: DILTIAZEM HCL 125 MG in DEXT 5% WATER 100 ML IV SCH (11:30)
[2018-09-07] MEDS: ENOXAPARIN 120MG/0.8ML SYR SUBCUT SCH ×2 (11:43→21:38)
[2018-09-07] MEDS: POTASSIUM CHLORIDE 10MEQ TABLET SR PO SCH (11:43)
[2018-09-07] MEDS: LISINOPRIL 10MG TABLET PO SCH (11:44)
[2018-09-07] MEDS ORDERED: CARVEDILOL 6.25 MG TABLET PO NR (14:00)
[2018-09-07] MEDS: DILTIAZEM HCL 30MG TABLET PO SCH ×2 (14:13→22:34)
[2018-09-07] MEDS: DILTIAZEM HCL 125 MG in DEXT 5% WATER 100 ML IV SCH (14:13)
[2018-09-07] MEDS: FUROSEMIDE 40MG/4ML VIAL IVP SCH (16:49)
[2018-09-07] MEDS: CARVEDILOL 6.25 MG TABLET PO SCH (21:38)
[2018-09-08] VITALS (12 sets, daily range): BP systolic 102–145; BP diastolic 55–99
[2018-09-08] MEDS: DILTIAZEM HCL 30MG TABLET PO SCH ×3 (06:41→22:32)
[2018-09-08] MEDS: FUROSEMIDE 40MG/4ML VIAL IVP SCH ×2 (06:41→16:39)
[2018-09-08 06:48] LABS: BASOPHILS % 0.5 % (0.0-2.0); EOSINOPHILS % 2.1 % (0.0-5.0); HEMATOCRIT. 41.3 % (42.0-52.0); HEMOGLOBIN. 13.9 g/dL (14.0-18.0); LYMPHOCYTES % 24.5 % (20.0-50.0); MEAN CORPUSCULAR HEMOGLOBIN 29.5 pg (28.0-32.0); MEAN CORPUSCULAR VOLUME 87.6 fL (80.0-94.0); MONOCYTES % 9.6 % (2.0-8.0); NEUTROPHILS % 63.3 % (40.0-76.0); PLATELET 141 x1000/uL (130-400); RED BLOOD CELL COUNT 4.72 mill/uL (4.7-6.1); RED CELL DISTRIBUTION WIDTH 13.5 % (11.6-14.6)
[2018-09-08 06:52] LABS: CHLORIDE 112 mEq/L (98-107)
[2018-09-08] MEDS: LISINOPRIL 10MG TABLET PO SCH ×2 (09:00→11:02)
[2018-09-08] MEDS: CARVEDILOL 6.25 MG TABLET PO SCH ×3 (09:00→21:52)
[2018-09-08] MEDS: POTASSIUM CHLORIDE 10MEQ TABLET SR PO SCH (09:36)
[2018-09-08] MEDS: ENOXAPARIN 120MG/0.8ML SYR SUBCUT SCH ×2 (09:36→21:53)
[2018-09-09] VITALS (10 sets, daily range): BP systolic 99–137; BP diastolic 54–77
[2018-09-09] MEDS: DILTIAZEM HCL 125 MG in DEXT 5% WATER 100 ML IV SCH (02:31)
[2018-09-09 06:27] LABS: BASOPHILS % 0.4 % (0.0-2.0); EOSINOPHILS % 1.8 % (0.0-5.0); HEMATOCRIT. 43.2 % (42.0-52.0); HEMOGLOBIN. 14.5 g/dL (14.0-18.0); LYMPHOCYTES % 28.6 % (20.0-50.0); MEAN CORPUSCULAR HEMOGLOBIN 29.6 pg (28.0-32.0); MEAN CORPUSCULAR VOLUME 88.2 fL (80.0-94.0); MEAN PLATELET VOLUME 9.7 fl (7.4-10.4); MONOCYTES % 11.5 % (2.0-8.0); NEUTROPHILS % 57.7 % (40.0-76.0); PLATELET 146 x1000/uL (130-400); RED CELL DISTRIBUTION WIDTH 13.2 % (11.6-14.6)
[2018-09-09 06:30] LABS: CHLORIDE 110 mEq/L (98-107)
[2018-09-09] MEDS: DILTIAZEM HCL 30MG TABLET PO SCH (06:33)
[2018-09-09] MEDS: FUROSEMIDE 40MG/4ML VIAL IVP SCH ×2 (06:44→16:29)
[2018-09-09] MEDS: POTASSIUM CHLORIDE 20MEQ TABLET SR PO SCH ×2 (09:17→16:29)
[2018-09-09] MEDS: LISINOPRIL 10MG TABLET PO SCH (09:17)
[2018-09-09] MEDS: CARVEDILOL 6.25 MG TABLET PO SCH ×2 (09:17→20:15)
[2018-09-09] MEDS: ASPIRIN 81MG EC TABLET PO SCH (09:17)
[2018-09-09] MEDS: ENOXAPARIN 120MG/0.8ML SYR SUBCUT SCH ×2 (09:19→20:15)
[2018-09-09] MEDS: DILTIAZEM HCL 60MG TABLET PO SCH ×2 (13:25→21:10)
[2018-09-09] MEDS ORDERED: CEFTRIAXONE 1 G PREMIX 50 ML IV SCH (18:00)
[2018-09-09] MEDS ORDERED: AZITHROMYCIN 500 MG in DEXT 5% WATER 250 ML IV SCH (19:00)
[2018-09-10] VITALS (9 sets, daily range): BP systolic 113–126; BP diastolic 66–81
[2018-09-10] MEDS: DILTIAZEM HCL 60MG TABLET PO SCH ×2 (05:55→14:08)
[2018-09-10 06:50] LABS: BASOPHILS % 0.6 % (0.0-2.0); HEMATOCRIT. 44.8 % (42.0-52.0); HEMOGLOBIN. 14.9 g/dL (14.0-18.0); LYMPHOCYTES % 27.6 % (20.0-50.0); MEAN CORPUSCULAR HEMOGLOBIN 29.5 pg (28.0-32.0); MEAN CORPUSCULAR VOLUME 88.8 fL (80.0-94.0); MEAN PLATELET VOLUME 9.9 fl (7.4-10.4); NEUTROPHILS % 55.8 % (40.0-76.0); PLATELET 167 x1000/uL (130-400); RED BLOOD CELL COUNT 5.04 mill/uL (4.7-6.1); RED CELL DISTRIBUTION WIDTH 13.6 % (11.6-14.6)
[2018-09-10 07:07] LABS: CHLORIDE 107 mEq/L (98-107)
[2018-09-10] MEDS: FUROSEMIDE 40MG/4ML VIAL IVP SCH (08:41)
[2018-09-10] MEDS: ASPIRIN 81MG EC TABLET PO SCH (08:43)
[2018-09-10] MEDS: LISINOPRIL 10MG TABLET PO SCH (08:43)
[2018-09-10] MEDS: CARVEDILOL 6.25 MG TABLET PO SCH (08:43)
[2018-09-10] MEDS: POTASSIUM CHLORIDE 20MEQ TABLET SR PO SCH (08:43)
[2018-09-10] MEDS: ENOXAPARIN 120MG/0.8ML SYR SUBCUT SCH (08:44)
== END 2018-09-10 15:20 | disposition home or self-care (01) | DRG 194 ==
LOC: ER 02:31 → 3WST 06:40 → EDBEDREQTM 06:42 → EDBEDREQSVC 06:42 → CANRESERV 07:40 → ENRESERV 07:40 → EDBEDREQSVC 08:26 → ENRESERV 08:27
PROVIDERS: ADMIT Internal Medicine; ATTEND Internal Medicine
PROC: 5A09357 Assistance with Respiratory Ventilation, Less than 24 Consecutive Hours, Continuous Positive Airway Pressure (ICD-10-PCS; principal; 2018-09-07)
PROC: 5A09357 Assistance with Respiratory Ventilation, Less than 24 Consecutive Hours, Continuous Positive Airway Pressure (ICD-10-PCS; 2018-09-08)
DX: I11.0 Hypertensive heart disease with heart failure (principal); J96.01 Acute respiratory failure with hypoxia; I47.2 Ventricular tachycardia; J18.9 Pneumonia, unspecified organism; I50.23 Acute on chronic systolic (congestive) heart failure; I48.1 Persistent atrial fibrillation; I08.0 Rheumatic disorders of both mitral and aortic valves; E87.6 Hypokalemia; I25.5 Ischemic cardiomyopathy; E66.09 Other obesity due to excess calories; F17.200 Nicotine dependence, unspecified, uncomplicated; Z79.82 Long term (current) use of aspirin; Z79.899 Other long term (current) drug therapy; Z68.39 Body mass index [BMI] 39.0-39.9, adult
CPT/HCPCS: 36415; 36600; 71045; 80048; 82375; 82805; 83735; 83880; 84484; 93005; 93306; 93970; 94660; 96365; 96375; 97162; 99291; J0456; J0696; J1160; J1650; J1940; J3490; J7030; J7060

== ENCOUNTER 2018-09-28 02:33 | Inpatient (IN) | payer MEDICAID ==
[2018-09-28] VITALS (9 sets, daily range): BP systolic 109–148; BP diastolic 60–101
[~2018-09-28] VITALS: Ht 152.4 cm; Wt 102.2 kg
[2018-09-28] MEDS ORDERED: DILTIAZEM HCL 5MG/ML 5ML VIAL IV ONE (02:45)
[2018-09-28] MEDS ORDERED: FUROSEMIDE 40MG/4ML VIAL IV ONE (02:45)
[2018-09-28] MEDS ORDERED: NITROGLYCERIN 50MG PREMIX 250 ML IV ONE (02:45)
[2018-09-28 03:24] LABS: BASOPHILS % 0.5 % (0.0-2.0); EOSINOPHILS % 1.9 % (0.0-5.0); HEMATOCRIT. 46.4 % (42.0-52.0); HEMOGLOBIN. 15.4 g/dL (14.0-18.0); LYMPHOCYTES % 36.7 % (20.0-50.0); MEAN CORPUSCULAR HEMOGLOBIN 29.2 pg (28.0-32.0); MEAN CORPUSCULAR VOLUME 88.2 fL (80.0-94.0); MEAN PLATELET VOLUME 10.2 fl (7.4-10.4); MONOCYTES % 10.8 % (2.0-8.0); NEUTROPHILS % 50.1 % (40.0-76.0); PLATELET 213 x1000/uL (130-400); RED BLOOD CELL COUNT 5.26 mill/uL (4.7-6.1); RED CELL DISTRIBUTION WIDTH 13.5 % (11.6-14.6)
[2018-09-28 03:35] LABS: CHLORIDE 117 mEq/L (98-107)
[2018-09-28 03:39] LABS: ETHANOL BLOOD < 10 mg/dL
[2018-09-28 03:45] LABS: T4 FREE 1.04 ng/dL (0.76-1.46)
[2018-09-28] MEDS ORDERED: DILTIAZEM HCL 5MG/ML 5ML VIAL IV NR (03:45)
[2018-09-28 04:56] LABS: PHENCYCLIDINE URINE SCREEN NEGATIVE (NEGATIVE)
[2018-09-28 04:58] LABS: *AMPHETAMINES SCREEN URINE NEGATIVE (NEGATIVE); *BARBITURATES SCREEN URINE NEGATIVE (NEGATIVE); *BENZODIAZEPINES SCREEN URINE NEGATIVE (NEGATIVE); *COCAINE SCREEN URINE NEGATIVE (NEGATIVE); CANNABINOID URINE SCREEN NEGATIVE (NEGATIVE); OPIATES URINE SCREEN NEGATIVE (NEGATIVE)
[2018-09-28 08:30] LABS: METHADONE URINE SCREEN NEGATIVE (NEGATIVE)
[2018-09-28] MEDS ORDERED: ENOXAPARIN 100MG/ML SYR SUBCUT SCH (14:00)
[2018-09-28] MEDS: FUROSEMIDE 40MG/4ML VIAL IVP SCH (14:21)
[2018-09-28] MEDS: POTASSIUM CHLORIDE 20MEQ TABLET SR PO SCH (14:21)
[2018-09-28] MEDS: DILTIAZEM HCL 60MG TABLET PO SCH ×2 (14:22→21:36)
[2018-09-28 15:47] LABS: BG BASE EXCESS -1.7 mmol/L (-2.0-2.0); BG BILEVEL POS AIRWAY PRESSURE 15/5; BG CARBOXYHEMOGLOBIN 0.5 % (0.5-1.5); BG DEOXYHEMOGLOBIN 2.5 % (0.0-5.0); BG FRACTION INSPIRED OXYGEN 50; BG HCO3 ACT 22.6 mmol/L (22.0-26.0); BG METHEMOGLOBIN 0.4 % (0.0-1.5); BG OXYGEN SATURATION 97.5 % (92.0-98.5); BG OXYHEMOGLOBIN 96.6 % (94.0-97.0); BG PCO2 37.3 mmHg (35.0-45.0); BG PH 7.401 (7.350-7.450); BG PO2 97.2 mmHg (75.0-100.0); BG SAMPLE SITE RIGHT BRACHIAL; BG TOTAL HEMOGLOBIN 15.1 g/dL (12.0-18.0); BG VENT MODE MASK - BIPAP
[2018-09-28] MEDS: ENOXAPARIN 100MG/ML SYR SUBCUT SCH (21:37)
[2018-09-29] VITALS (12 sets, daily range): BP systolic 104–139; BP diastolic 46–89
[2018-09-29] MEDS: DILTIAZEM HCL 60MG TABLET PO SCH (06:18)
[2018-09-29] MEDS: FUROSEMIDE 40MG/4ML VIAL IVP SCH ×2 (06:18→16:19)
[2018-09-29 06:30] LABS: BASOPHILS % 0.5 % (0.0-2.0); EOSINOPHILS % 2.1 % (0.0-5.0); HEMATOCRIT. 43.5 % (42.0-52.0); LYMPHOCYTES % 25.6 % (20.0-50.0); MEAN CORPUSCULAR HEMOGLOBIN 28.6 pg (28.0-32.0); MEAN CORPUSCULAR VOLUME 88.6 fL (80.0-94.0); MEAN PLATELET VOLUME 10.3 fl (7.4-10.4); MONOCYTES % 9.9 % (2.0-8.0); NEUTROPHILS % 61.9 % (40.0-76.0); PLATELET 159 x1000/uL (130-400); RED BLOOD CELL COUNT 4.91 mill/uL (4.7-6.1); RED CELL DISTRIBUTION WIDTH 13.7 % (11.6-14.6)
[2018-09-29 06:35] LABS: CHLORIDE 114 mEq/L (98-107)
[2018-09-29 06:36] LABS: INR 1.2; PROTHROMBIN TIME 12.6 sec (9.6-11.0)
[2018-09-29] MEDS: POTASSIUM CHLORIDE 20MEQ TABLET SR PO SCH (08:07)
[2018-09-29] MEDS: ENOXAPARIN 100MG/ML SYR SUBCUT SCH ×2 (08:08→21:55)
[2018-09-29] MEDS: DILTIAZEM HCL 90MG TABLET PO SCH ×2 (14:23→21:55)
[2018-09-29] MEDS: TRAZODONE HCL 50MG TABLET PO SCH (21:55)
[2018-09-30] VITALS (13 sets, daily range): BP systolic 101–134; BP diastolic 52–93
[2018-09-30] MEDS: FUROSEMIDE 40MG/4ML VIAL IVP SCH ×2 (06:21→17:09)
[2018-09-30] MEDS: DILTIAZEM HCL 90MG TABLET PO SCH ×3 (06:21→21:08)
[2018-09-30 06:42] LABS: HEMATOCRIT. 44.3 % (42.0-52.0); HEMOGLOBIN. 14.5 g/dL (14.0-18.0); MEAN CORPUSCULAR VOLUME 88.6 fL (80.0-94.0)
[2018-09-30 06:43] LABS: BASOPHILS % 0.4 % (0.0-2.0); EOSINOPHILS % 2.9 % (0.0-5.0); LYMPHOCYTES % 31.8 % (20.0-50.0); MEAN PLATELET VOLUME 10.3 fl (7.4-10.4); MONOCYTES % 10.8 % (2.0-8.0); NEUTROPHILS % 54.1 % (40.0-76.0); PLATELET 163 x1000/uL (130-400); RED CELL DISTRIBUTION WIDTH 13.5 % (11.6-14.6)
[2018-09-30 08:01] LABS: CHLORIDE 111 mEq/L (98-107)
[2018-09-30] MEDS: SPIRONOLACTONE 25MG TABLET PO SCH (09:28)
[2018-09-30] MEDS: LOSARTAN POTASSIUM 25 MG TABLET PO SCH (09:28)
[2018-09-30] MEDS: ENOXAPARIN 100MG/ML SYR SUBCUT SCH ×2 (09:29→21:09)
[2018-09-30] MEDS ORDERED: POTASSIUM CHLORIDE 20MEQ TABLET SR PO NR (11:15)
[2018-09-30] MEDS: TRAZODONE HCL 50MG TABLET PO SCH (21:09)
[2018-10-01] VITALS (8 sets, daily range): BP systolic 109–134; BP diastolic 64–100
[2018-10-01] MEDS: DILTIAZEM HCL 90MG TABLET PO SCH (06:11)
[2018-10-01 07:20] LABS: BASOPHILS % 0.5 % (0.0-2.0); EOSINOPHILS % 3.4 % (0.0-5.0); HEMATOCRIT. 46.6 % (42.0-52.0); HEMOGLOBIN. 15.1 g/dL (14.0-18.0); LYMPHOCYTES % 33.6 % (20.0-50.0); MEAN CORPUSCULAR HEMOGLOBIN 28.6 pg (28.0-32.0); MEAN CORPUSCULAR VOLUME 88.2 fL (80.0-94.0); MEAN PLATELET VOLUME 10.3 fl (7.4-10.4); MONOCYTES % 11.7 % (2.0-8.0); NEUTROPHILS % 50.8 % (40.0-76.0); PLATELET 161 x1000/uL (130-400); RED BLOOD CELL COUNT 5.29 mill/uL (4.7-6.1); RED CELL DISTRIBUTION WIDTH 13.4 % (11.6-14.6)
[2018-10-01] MEDS: ENOXAPARIN 100MG/ML SYR SUBCUT SCH (08:26)
[2018-10-01] MEDS: FUROSEMIDE 40MG/4ML VIAL IVP SCH (08:27)
[2018-10-01] MEDS: SPIRONOLACTONE 25MG TABLET PO SCH (08:28)
[2018-10-01] MEDS: LOSARTAN POTASSIUM 25 MG TABLET PO SCH (08:31)
[2018-10-01 08:46] LABS: CHLORIDE 110 mEq/L (98-107)
== END 2018-10-01 10:35 | disposition home or self-care (01) | DRG 133 ==
LOC: ER 02:33 → 3WST 03:37 → ENRESERV 07:04
PROVIDERS: ADMIT Internal Medicine; ATTEND Internal Medicine
PROC: 5A09457 Assistance with Respiratory Ventilation, 24-96 Consecutive Hours, Continuous Positive Airway Pressure (ICD-10-PCS; principal; 2018-09-28)
DX: J96.21 Acute and chronic respiratory failure with hypoxia (principal); I50.23 Acute on chronic systolic (congestive) heart failure; I42.9 Cardiomyopathy, unspecified; I48.1 Persistent atrial fibrillation; I11.0 Hypertensive heart disease with heart failure; G47.33 Obstructive sleep apnea (adult) (pediatric); F17.200 Nicotine dependence, unspecified, uncomplicated; E66.09 Other obesity due to excess calories; I34.0 Nonrheumatic mitral (valve) insufficiency; I48.92 Unspecified atrial flutter; J45.909 Unspecified asthma, uncomplicated; Z79.01 Long term (current) use of anticoagulants; Z87.01 Personal history of pneumonia (recurrent); Z91.19 Patient's noncompliance with other medical treatment and regimen; Z68.22 Body mass index [BMI] 22.0-22.9, adult
CPT/HCPCS: 36415; 36600; 71045; 80048; 80305; 80320; 82375; 82805; 82962; 83605; 83735; 83880; 84439; 84443; 84484; 93005; 94660; 96374; 96375; 99285; J1650; J1940; J3490; G0480

== ENCOUNTER 2018-10-22 11:32 | Inpatient (IN) | payer MEDICAID ==
[~2018-10-22] VITALS: Ht 180.3 cm; Wt 106.2 kg
[2018-10-22] MEDS ORDERED: ASPIRIN 325MG EC TABLET PO ONE (12:15)
[2018-10-22] MEDS ORDERED: FUROSEMIDE 40MG/4ML VIAL IVP ONE (12:15)
[2018-10-22 12:26] LABS: BASOPHILS % 0.4 % (0.0-2.0); EOSINOPHILS % 1.7 % (0.0-5.0); HEMATOCRIT. 41.4 % (42.0-52.0); HEMOGLOBIN. 13.5 g/dL (14.0-18.0); LYMPHOCYTES % 23.3 % (20.0-50.0); MEAN CORPUSCULAR HEMOGLOBIN 28.7 pg (28.0-32.0); MEAN CORPUSCULAR VOLUME 87.8 fL (80.0-94.0); MONOCYTES % 11.8 % (2.0-8.0); NEUTROPHILS % 62.8 % (40.0-76.0); PLATELET 153 x1000/uL (130-400); RED BLOOD CELL COUNT 4.71 mill/uL (4.7-6.1); RED CELL DISTRIBUTION WIDTH 13.6 % (11.6-14.6)
[2018-10-22 12:27] LABS: CHLORIDE 115 mEq/L (98-107)
[2018-10-22] MEDS ORDERED: FURO-151 MT (17:19)
[2018-10-22] MEDS ORDERED: ASPI-1393 MT (17:19)
[2018-10-22] MEDS ORDERED: POTA8CAP20 MT (17:19)
[2018-10-22] MEDS ORDERED: ACETAMINOPHEN 325MG TABLET PO PRN (17:30)
[2018-10-22] MEDS ORDERED: HYDROCODONE/ACETAMINOPHEN 5/325MG TABLET PO PRN (17:30)
[2018-10-22 18:00] VITALS: BP 110/75
[2018-10-22 18:32] VITALS: BP 110/75
[2018-10-22 20:50] VITALS: BP 120/73
[2018-10-22] MEDS: ENOXAPARIN 30MG/0.3ML SYR SUBCUT SCH (22:15)
[2018-10-22] MEDS: FUROSEMIDE 40MG/4ML VIAL IVP SCH (22:15)
[2018-10-23] VITALS (8 sets, daily range): BP systolic 92–118; BP diastolic 64–90
[2018-10-23] MEDS: FUROSEMIDE 40MG/4ML VIAL IVP SCH ×2 (06:16→18:20)
[2018-10-23 06:52] LABS: CHLORIDE 113 mEq/L (98-107)
[2018-10-23 07:24] LABS: BASOPHILS % 0.4 % (0.0-2.0); EOSINOPHILS % 2.1 % (0.0-5.0); HEMATOCRIT. 41.9 % (42.0-52.0); HEMOGLOBIN. 13.5 g/dL (14.0-18.0); LYMPHOCYTES % 25.9 % (20.0-50.0); MEAN CORPUSCULAR HEMOGLOBIN 28.3 pg (28.0-32.0); MEAN CORPUSCULAR VOLUME 87.6 fL (80.0-94.0); MEAN PLATELET VOLUME 10.4 fl (7.4-10.4); MONOCYTES % 11.5 % (2.0-8.0); NEUTROPHILS % 60.1 % (40.0-76.0); PLATELET 151 x1000/uL (130-400); RED BLOOD CELL COUNT 4.78 mill/uL (4.7-6.1); RED CELL DISTRIBUTION WIDTH 13.6 % (11.6-14.6)
[2018-10-23 07:30] LABS: CREATINE KINASE 43 IU/L (39-308)
[2018-10-23 07:32] LABS: CREATINE KINASE MB FRACTION < 1.0 ng/mL (0.5-3.6)
[2018-10-23] MEDS: LISINOPRIL 20MG TABLET PO SCH (09:22)
[2018-10-23] MEDS: ASPIRIN 81MG TABLET PO SCH (09:22)
[2018-10-23] MEDS: ENOXAPARIN 30MG/0.3ML SYR SUBCUT SCH ×2 (09:23→20:17)
[2018-10-23] MEDS ORDERED: REGADENOSON 0.4 MG/5 ML IV ONE (15:30)
[2018-10-23] MEDS ORDERED: CARVEDILOL 3.125 MG TABLET PO NR (15:30)
[2018-10-23] MEDS: CARVEDILOL 3.125 MG TABLET PO SCH (20:17)
[2018-10-24] VITALS (7 sets, daily range): BP systolic 104–124; BP diastolic 71–86
[2018-10-24] MEDS: FUROSEMIDE 40MG/4ML VIAL IVP SCH ×2 (06:15→17:44)
[2018-10-24 06:53] LABS: BASOPHILS % 0.3 % (0.0-2.0); EOSINOPHILS % 2.3 % (0.0-5.0); HEMATOCRIT. 43.5 % (42.0-52.0); HEMOGLOBIN. 14.2 g/dL (14.0-18.0); LYMPHOCYTES % 31.3 % (20.0-50.0); MEAN CORPUSCULAR HEMOGLOBIN 28.6 pg (28.0-32.0); MEAN CORPUSCULAR VOLUME 87.3 fL (80.0-94.0); MEAN PLATELET VOLUME 10.2 fl (7.4-10.4); MONOCYTES % 10.7 % (2.0-8.0); NEUTROPHILS % 55.4 % (40.0-76.0); PLATELET 155 x1000/uL (130-400); RED BLOOD CELL COUNT 4.98 mill/uL (4.7-6.1); RED CELL DISTRIBUTION WIDTH 13.6 % (11.6-14.6)
[2018-10-24 07:12] LABS: CHLORIDE 113 mEq/L (98-107)
[2018-10-24] MEDS: CARVEDILOL 3.125 MG TABLET PO SCH ×2 (10:03→21:00)
[2018-10-24] MEDS: LISINOPRIL 20MG TABLET PO SCH (10:03)
[2018-10-24] MEDS: ASPIRIN 81MG TABLET PO SCH (10:03)
[2018-10-24] MEDS: ENOXAPARIN 30MG/0.3ML SYR SUBCUT SCH ×2 (10:04→21:44)
[2018-10-24] MEDS ORDERED: REGADENOSON 0.4 MG/5 ML IV ONE (11:52)
[2018-10-25 00:42] VITALS: BP_SYST 109; BP_SYST 193; BP_DIAS 107; BP_DIAS 80
[2018-10-25 04:00] VITALS: BP 113/74
[2018-10-25] MEDS: FUROSEMIDE 40MG/4ML VIAL IVP SCH ×2 (06:16→17:23)
[2018-10-25 07:22] LABS: BASOPHILS % 0.4 % (0.0-2.0); EOSINOPHILS % 2.7 % (0.0-5.0); HEMATOCRIT. 43.5 % (42.0-52.0); HEMOGLOBIN. 14.3 g/dL (14.0-18.0); LYMPHOCYTES % 30.4 % (20.0-50.0); MEAN CORPUSCULAR HEMOGLOBIN 28.7 pg (28.0-32.0); MEAN CORPUSCULAR VOLUME 87.1 fL (80.0-94.0); MEAN PLATELET VOLUME 10.2 fl (7.4-10.4); MONOCYTES % 11.8 % (2.0-8.0); NEUTROPHILS % 54.7 % (40.0-76.0); PLATELET 153 x1000/uL (130-400); RED BLOOD CELL COUNT 4.99 mill/uL (4.7-6.1); RED CELL DISTRIBUTION WIDTH 13.6 % (11.6-14.6)
[2018-10-25 07:56] LABS: CHLORIDE 111 mEq/L (98-107)
[2018-10-25 08:00] VITALS: BP 114/84
[2018-10-25] MEDS: LISINOPRIL 20MG TABLET PO SCH (09:12)
[2018-10-25] MEDS: ASPIRIN 81MG TABLET PO SCH (09:12)
[2018-10-25] MEDS: CARVEDILOL 3.125 MG TABLET PO SCH (09:13)
[2018-10-25] MEDS: ENOXAPARIN 30MG/0.3ML SYR SUBCUT SCH ×2 (09:15→21:22)
[2018-10-25 12:00] VITALS: BP 129/89
[2018-10-25 16:00] VITALS: BP 90/69
[2018-10-25] MEDS ORDERED: POTASSIUM CHLORIDE 20MEQ TABLET SR PO PRN (17:30)
[2018-10-25] MEDS ORDERED: MAGNESIUM 2 G PREMIX 50 ML IV PRN (17:30)
[2018-10-25 20:45] VITALS: BP 97/76
[2018-10-25] MEDS: CARVEDILOL 6.25 MG TABLET PO SCH (21:00)
[2018-10-26] VITALS: BP 102/79
[2018-10-26 04:00] VITALS: BP 98/65
[2018-10-26 06:29] LABS: BASOPHILS % 0.4 % (0.0-2.0); EOSINOPHILS % 3.2 % (0.0-5.0); HEMATOCRIT. 41.9 % (42.0-52.0); HEMOGLOBIN. 13.6 g/dL (14.0-18.0); LYMPHOCYTES % 32.2 % (20.0-50.0); MEAN CORPUSCULAR HEMOGLOBIN 28.4 pg (28.0-32.0); MEAN CORPUSCULAR VOLUME 87.6 fL (80.0-94.0); MONOCYTES % 11.7 % (2.0-8.0); NEUTROPHILS % 52.5 % (40.0-76.0); PLATELET 151 x1000/uL (130-400); RED BLOOD CELL COUNT 4.78 mill/uL (4.7-6.1); RED CELL DISTRIBUTION WIDTH 13.7 % (11.6-14.6)
[2018-10-26 06:48] LABS: CHLORIDE 109 mEq/L (98-107)
[2018-10-26] MEDS: FUROSEMIDE 40MG/4ML VIAL IVP SCH (06:58)
[2018-10-26] MEDS ORDERED: APIXABAN 5 MG TABLET PO SCH (10:00)
[2018-10-26] MEDS: LISINOPRIL 20MG TABLET PO SCH (10:13)
[2018-10-26] MEDS: ASPIRIN 81MG TABLET PO SCH (10:13)
[2018-10-26] MEDS: CARVEDILOL 6.25 MG TABLET PO SCH (10:14)
[2018-10-26 11:34] VITALS: BP 115/74
[2018-10-26] MEDS ORDERED: FUROSEMIDE 40MG TABLET PO SCH (17:00)
== END 2018-10-26 16:13 | disposition home or self-care (01) | DRG 194 ==
LOC: ER 11:32 → 6WST 15:40 → EDBEDREQTM 15:42 → EDBEDREQ 15:42 → ENRESERV 15:54
PROVIDERS: ADMIT Internal Medicine; ATTEND Internal Medicine
DX: I11.0 Hypertensive heart disease with heart failure (principal); N17.9 Acute kidney failure, unspecified; Z79.01 Long term (current) use of anticoagulants; I50.23 Acute on chronic systolic (congestive) heart failure; I48.1 Persistent atrial fibrillation; F17.200 Nicotine dependence, unspecified, uncomplicated; F32.9 Major depressive disorder, single episode, unspecified; I47.1 Supraventricular tachycardia; I49.3 Ventricular premature depolarization; I34.0 Nonrheumatic mitral (valve) insufficiency; I25.10 Atherosclerotic heart disease of native coronary artery without angina pectoris; I25.5 Ischemic cardiomyopathy; J45.909 Unspecified asthma, uncomplicated; I25.2 Old myocardial infarction
CPT/HCPCS: 36415; 71045; 78452; 80048; 82550; 82553; 83735; 83880; 84484; 86141; 93005; 93017; 93970; 99285; A9500; J1650; J1940; J2785

== ENCOUNTER 2018-12-08 15:06 | Inpatient (IN) | payer MEDICAID ==
[~2018-12-08] VITALS: Ht 175.3 cm; Wt 109.3 kg
[~2018-12-08 15:06] MED LIST changes: +ASPI-1393 MT; +FURO-151 MT; -FURO-151 PO; +POTA8CAP20 MT
[2018-12-08] MEDS ORDERED: ASPIRIN 81MG TABLET PO ONE (15:15)
[2018-12-08] MEDS ORDERED: NITROGLYCERIN OINT 1GM/INCH UDPKT TD ONE (15:15)
[2018-12-08] MEDS ORDERED: DILTIAZEM HCL 5MG/ML 5ML VIAL IV ONE (15:15)
[2018-12-08] MEDS ORDERED: FUROSEMIDE 40MG/4ML VIAL IV ONE (15:15)
[2018-12-08 15:32] LABS: BG BASE EXCESS -5.1 mmol/L (-2.0-2.0); BG BILEVEL POS AIRWAY PRESSURE 15/5; BG DEOXYHEMOGLOBIN 2.1 % (0.0-5.0); BG HCO3 ACT 18.6 mmol/L (22.0-26.0); BG METHEMOGLOBIN 0.4 % (0.0-1.5); BG OXYGEN SATURATION 97.9 % (92.0-98.5); BG OXYHEMOGLOBIN 96.5 % (94.0-97.0); BG PCO2 31.1 mmHg (35.0-45.0); BG PH 7.394 (7.350-7.450); BG PO2 112.8 mmHg (75.0-100.0); BG SAMPLE SITE RIGHT RADIAL; BG TOTAL HEMOGLOBIN 14.4 g/dL (12.0-18.0); BG VENT MODE MASK - BIPAP; BG VENT RATE 16 set
[2018-12-08 15:39] LABS: CHLORIDE 109 mEq/L (98-107)
[2018-12-08 15:42] LABS: INR 1.4; PARTIAL THROMBOPLASTIN TIME 30.8 sec (23.4-31.0); PROTHROMBIN TIME 14.2 sec (9.6-11.0)
[2018-12-08 15:44] LABS: BASOPHILS % 0.3 % (0.0-2.0); EOSINOPHILS % 0.4 % (0.0-5.0); HEMATOCRIT. 42.5 % (42.0-52.0); HEMOGLOBIN. 13.9 g/dL (14.0-18.0); LYMPHOCYTES % 30.1 % (20.0-50.0); MEAN CORPUSCULAR HEMOGLOBIN 27.8 pg (28.0-32.0); MEAN CORPUSCULAR VOLUME 84.8 fL (80.0-94.0); MEAN PLATELET VOLUME 10.7 fl (7.4-10.4); MONOCYTES % 12.1 % (2.0-8.0); NEUTROPHILS % 57.1 % (40.0-76.0); PLATELET 165 x1000/uL (130-400); RED BLOOD CELL COUNT 5.01 mill/uL (4.7-6.1); RED CELL DISTRIBUTION WIDTH 13.9 % (11.6-14.6)
[2018-12-08] MEDS ORDERED: DILTIAZEM HCL 60MG TABLET PO ONE (19:00)
[2018-12-09] VITALS (13 sets, daily range): BP systolic 101–144; BP diastolic 64–96
[2018-12-09 07:47] LABS: BG BASE EXCESS -4.9 mmol/L (-2.0-2.0); BG BILEVEL POS AIRWAY PRESSURE 15/5; BG CARBOXYHEMOGLOBIN 0.7 % (0.5-1.5); BG DEOXYHEMOGLOBIN 3.6 % (0.0-5.0); BG HCO3 ACT 19.2 mmol/L (22.0-26.0); BG METHEMOGLOBIN 0.3 % (0.0-1.5); BG OXYGEN SATURATION 96.4 % (92.0-98.5); BG OXYHEMOGLOBIN 95.4 % (94.0-97.0); BG PCO2 33.1 mmHg (35.0-45.0); BG PH 7.382 (7.350-7.450); BG PO2 87.1 mmHg (75.0-100.0); BG SAMPLE SITE RIGHT RADIAL; BG TOTAL HEMOGLOBIN 14.2 g/dL (12.0-18.0); BG VENT MODE MASK - BIPAP; BG VENT RATE 16 set
[2018-12-09] MEDS ORDERED: DILTIAZEM HCL 5MG/ML 5ML VIAL IV SCH ×3 (08:15→13:00)
[2018-12-09] MEDS ORDERED: ENOXAPARIN 30MG/0.3ML SYR SUBCUT SCH (09:00)
[2018-12-09] MEDS ORDERED: LIDOCAINE HCL/PF 1% 2ML VIAL ONE (09:00)
[2018-12-09 09:23] LABS: CHLORIDE 110 mEq/L (98-107)
[2018-12-09 09:34] LABS: CREATINE KINASE MB FRACTION < 1.0 ng/mL (0.5-3.6)
[2018-12-09] MEDS ORDERED: FUROSEMIDE 40MG/4ML VIAL IVP SCH (09:45)
[2018-12-09] MEDS ORDERED: POTASSIUM CHLORIDE 20MEQ TABLET SR PO NR (10:00)
[2018-12-09] MEDS: DILTIAZEM HCL 125 MG in DEXT 5% WATER 100 ML IV SCH (10:51)
[2018-12-09] MEDS: LISINOPRIL 20MG TABLET PO SCH (10:51)
[2018-12-09 12:08] LABS: CREATINE KINASE MB FRACTION < 1.0 ng/mL (0.5-3.6)
[2018-12-09 13:25] LABS: BASOPHILS % 0.9 % (0.0-2.0); EOSINOPHILS % 1.8 % (0.0-5.0); HEMATOCRIT. 42.5 % (42.0-52.0); HEMOGLOBIN. 13.8 g/dL (14.0-18.0); LYMPHOCYTES % 25.6 % (20.0-50.0); MEAN CORPUSCULAR HEMOGLOBIN 27.7 pg (28.0-32.0); MEAN CORPUSCULAR VOLUME 85.4 fL (80.0-94.0); MEAN PLATELET VOLUME 10.7 fl (7.4-10.4); MONOCYTES % 9.1 % (2.0-8.0); NEUTROPHILS % 62.6 % (40.0-76.0); PLATELET 143 x1000/uL (130-400); RED BLOOD CELL COUNT 4.98 mill/uL (4.7-6.1); RED CELL DISTRIBUTION WIDTH 14.3 % (11.6-14.6)
[2018-12-09] MEDS: FUROSEMIDE 40MG/4ML VIAL IVP SCH (16:55)
[2018-12-09 22:00] LABS: CREATINE KINASE MB FRACTION < 1.0 ng/mL (0.5-3.6)
[2018-12-10] VITALS (12 sets, daily range): BP systolic 86–150; BP diastolic 55–120
[2018-12-10] MEDS: DILTIAZEM HCL 125 MG in DEXT 5% WATER 100 ML IV SCH ×2 (02:36→21:30)
[2018-12-10 03:11] LABS: *AMPHETAMINES SCREEN URINE NEGATIVE (NEGATIVE); *BARBITURATES SCREEN URINE NEGATIVE (NEGATIVE); *BENZODIAZEPINES SCREEN URINE NEGATIVE (NEGATIVE); *COCAINE SCREEN URINE NEGATIVE (NEGATIVE); METHADONE URINE SCREEN NEGATIVE (NEGATIVE); OPIATES URINE SCREEN NEGATIVE (NEGATIVE); PHENCYCLIDINE URINE SCREEN NEGATIVE (NEGATIVE)
[2018-12-10 03:12] LABS: CANNABINOID URINE SCREEN NEGATIVE (NEGATIVE)
[2018-12-10 06:53] LABS: BASOPHILS % 0.3 % (0.0-2.0); EOSINOPHILS % 1.6 % (0.0-5.0); HEMATOCRIT. 40.5 % (42.0-52.0); LYMPHOCYTES % 33.2 % (20.0-50.0); MEAN CORPUSCULAR HEMOGLOBIN 27.8 pg (28.0-32.0); MEAN CORPUSCULAR VOLUME 86.8 fL (80.0-94.0); MEAN PLATELET VOLUME 10.4 fl (7.4-10.4); MONOCYTES % 14.5 % (2.0-8.0); NEUTROPHILS % 50.4 % (40.0-76.0); PLATELET 141 x1000/uL (130-400); RED BLOOD CELL COUNT 4.67 mill/uL (4.7-6.1); RED CELL DISTRIBUTION WIDTH 14.1 % (11.6-14.6)
[2018-12-10 07:07] LABS: CHLORIDE 108 mEq/L (98-107)
[2018-12-10] MEDS: FUROSEMIDE 40MG/4ML VIAL IVP SCH ×2 (08:27→17:29)
[2018-12-10] MEDS: APIXABAN 5 MG TABLET PO SCH ×2 (08:27→17:28)
[2018-12-10] MEDS: POTASSIUM CHLORIDE 20MEQ TABLET SR PO SCH (08:27)
[2018-12-10] MEDS: LISINOPRIL 20MG TABLET PO SCH (08:28)
[2018-12-10] MEDS: CARVEDILOL 3.125 MG TABLET PO SCH (21:00)
[2018-12-10] MEDS: ATORVASTATIN CALCIUM 20MG TABLET PO SCH (21:26)
[2018-12-11] VITALS (12 sets, daily range): BP systolic 92–136; BP diastolic 47–89
[2018-12-11] MEDS: DILTIAZEM HCL 125 MG in DEXT 5% WATER 100 ML IV SCH (01:34)
[2018-12-11 06:42] LABS: BASOPHILS % 0.3 % (0.0-2.0); EOSINOPHILS % 1.8 % (0.0-5.0); HEMATOCRIT. 40.7 % (42.0-52.0); HEMOGLOBIN. 13.4 g/dL (14.0-18.0); LYMPHOCYTES % 29.8 % (20.0-50.0); MEAN CORPUSCULAR HEMOGLOBIN 27.9 pg (28.0-32.0); MEAN CORPUSCULAR VOLUME 84.5 fL (80.0-94.0); MEAN PLATELET VOLUME 10.3 fl (7.4-10.4); MONOCYTES % 12.3 % (2.0-8.0); NEUTROPHILS % 55.8 % (40.0-76.0); PLATELET 154 x1000/uL (130-400); RED BLOOD CELL COUNT 4.81 mill/uL (4.7-6.1); RED CELL DISTRIBUTION WIDTH 14.3 % (11.6-14.6)
[2018-12-11 07:07] LABS: CHLORIDE 110 mEq/L (98-107)
[2018-12-11] MEDS: APIXABAN 5 MG TABLET PO SCH ×2 (08:14→16:33)
[2018-12-11] MEDS: POTASSIUM CHLORIDE 20MEQ TABLET SR PO SCH (08:14)
[2018-12-11] MEDS: CARVEDILOL 3.125 MG TABLET PO SCH ×2 (08:14→21:33)
[2018-12-11] MEDS: LISINOPRIL 20MG TABLET PO SCH (08:15)
[2018-12-11] MEDS: FUROSEMIDE 40MG/4ML VIAL IVP SCH (08:18)
[2018-12-11] MEDS ORDERED: DIGOXIN 500MCG/2ML AMP IV SCH (12:45)
[2018-12-11] MEDS: ATORVASTATIN CALCIUM 20MG TABLET PO SCH (21:32)
[2018-12-11] MEDS: AMIODARONE HCL 200 MG TABLET PO SCH (22:05)
[2018-12-12] VITALS (8 sets, daily range): BP systolic 101–122; BP diastolic 57–83
[2018-12-12 07:16] LABS: CHLORIDE 111 mEq/L (98-107)
[2018-12-12 07:20] LABS: BASOPHILS % 0.3 % (0.0-2.0); EOSINOPHILS % 2.6 % (0.0-5.0); HEMATOCRIT. 40.4 % (42.0-52.0); HEMOGLOBIN. 13.1 g/dL (14.0-18.0); LYMPHOCYTES % 34.1 % (20.0-50.0); MEAN CORPUSCULAR HEMOGLOBIN 27.5 pg (28.0-32.0); MEAN CORPUSCULAR VOLUME 85.2 fL (80.0-94.0); MEAN PLATELET VOLUME 10.2 fl (7.4-10.4); MONOCYTES % 12.4 % (2.0-8.0); NEUTROPHILS % 50.6 % (40.0-76.0); PLATELET 159 x1000/uL (130-400); RED BLOOD CELL COUNT 4.75 mill/uL (4.7-6.1); RED CELL DISTRIBUTION WIDTH 14.8 % (11.6-14.6)
[2018-12-12] MEDS: APIXABAN 5 MG TABLET PO SCH ×2 (08:32→17:13)
[2018-12-12] MEDS: POTASSIUM CHLORIDE 20MEQ TABLET SR PO SCH (08:32)
[2018-12-12] MEDS: CARVEDILOL 3.125 MG TABLET PO SCH (08:33)
[2018-12-12] MEDS: AMIODARONE HCL 200 MG TABLET PO SCH (08:34)
[2018-12-12] MEDS ORDERED: LISINOPRIL 10MG TABLET PO SCH (09:00)
[2018-12-12] MEDS ORDERED: POTASSIUM CHLORIDE 20MEQ TABLET SR PO SCH (11:00)
[2018-12-12] MEDS ORDERED: CARVEDILOL 6.25 MG TABLET PO SCH (21:00)
== END 2018-12-12 18:40 | disposition short-term general hospital (02) | DRG 133 ==
LOC: ER 15:06 → 3WST 16:26 → EDBEDREQ 16:30 → ENRESERV 20:01
PROVIDERS: ADMIT Internal Medicine; ATTEND Internal Medicine
PROC: 5A09457 Assistance with Respiratory Ventilation, 24-96 Consecutive Hours, Continuous Positive Airway Pressure (ICD-10-PCS; principal; 2018-12-08)
DX: J96.00 Acute respiratory failure, unspecified whether with hypoxia or hypercapnia (principal); I47.2 Ventricular tachycardia; I50.23 Acute on chronic systolic (congestive) heart failure; I48.19 Other persistent atrial fibrillation; D68.59 Other primary thrombophilia; I13.0 Hypertensive heart and chronic kidney disease with heart failure and stage 1 through stage 4 chronic kidney disease, or unspecified chronic kidney disease; N18.9 Chronic kidney disease, unspecified; E87.6 Hypokalemia; I49.3 Ventricular premature depolarization; E66.9 Obesity, unspecified; I25.10 Atherosclerotic heart disease of native coronary artery without angina pectoris; J44.9 Chronic obstructive pulmonary disease, unspecified; F17.210 Nicotine dependence, cigarettes, uncomplicated; I25.5 Ischemic cardiomyopathy; I48.11 Longstanding persistent atrial fibrillation; Z82.3 Family history of stroke; Z82.49 Family history of ischemic heart disease and other diseases of the circulatory system; Z79.899 Other long term (current) drug therapy; Z79.01 Long term (current) use of anticoagulants; I25.2 Old myocardial infarction; Z79.82 Long term (current) use of aspirin; Z68.35 Body mass index [BMI] 35.0-35.9, adult
CPT/HCPCS: 36415; 36600; 71045; 80048; 80305; 82375; 82553; 82805; 83735; 83880; 84484; 93005; 93306; 94660; 96374; 96375; 99291; J1160; J1650; J1940; J3490; J7060

== ENCOUNTER 2019-03-12 06:43 | Inpatient (IN) | payer MEDICAID, OTHER ==
[~2019-03-12] VITALS: Ht 170.2 cm; Wt 103.0 kg
[~2019-03-12 06:43] MED LIST changes: -ASPI-1393 MT; +ASPI-1497 MT
[2019-03-12] MEDS ORDERED: ONDANSETRON HCL 4MG/2ML INJ IV STA (07:10)
[2019-03-12] MEDS ORDERED: ALBUTEROL (0.083%) 2.5MG/3ML NEB HHN STA (07:10)
[2019-03-12] MEDS ORDERED: IPRATROPIUM BROMIDE (0.02%) 0.5MG/2.5ML NEB HHN STA (07:10)
[2019-03-12] MEDS ORDERED: MORPHINE SULFATE 4 MG/ML CPJ (NOT FOR IM USE) IV STA (07:10)
[2019-03-12 07:41] LABS: BASOPHILS % 0.8 % (0.0-2.0); EOSINOPHILS % 0.7 % (0.0-5.0); HEMATOCRIT. 53.1 % (42.0-52.0); HEMOGLOBIN. 16.8 g/dL (14.0-18.0); LYMPHOCYTES % 29.8 % (20.0-50.0); MEAN CORPUSCULAR HEMOGLOBIN 28.9 pg (28.0-32.0); MEAN CORPUSCULAR VOLUME 91.5 fL (80.0-94.0); MEAN PLATELET VOLUME 10.2 fl (7.4-10.4); MONOCYTES % 11.6 % (2.0-8.0); NEUTROPHILS % 57.1 % (40.0-76.0); PLATELET 187 x1000/uL (130-400); RED BLOOD CELL COUNT 5.81 mill/uL (4.7-6.1); RED CELL DISTRIBUTION WIDTH 17.6 % (11.6-14.6)
[2019-03-12 07:43] LABS: CHLORIDE 112 mEq/L (98-107); INR 1.7; PROTHROMBIN TIME 17.1 sec (9.6-11.0)
[2019-03-12] MEDS ORDERED: DIGOXIN 500MCG/2ML AMP IV ONE (09:30)
[2019-03-12] MEDS ORDERED: APIXABAN 2.5 MG TABLET PO SCH (11:00)
[2019-03-12] MEDS ORDERED: CLOPIDOGREL 75MG TABLET PO SCH (11:00)
[2019-03-12 13:13] LABS: T4 FREE 1.16 ng/dL (0.76-1.46)
[2019-03-12 14:25] LABS: CREATINE KINASE MB FRACTION 5.1 ng/mL (0.5-3.6)
[2019-03-12] MEDS ORDERED: APIXABAN 2.5 MG TABLET PO NR (16:00)
[2019-03-12] MEDS ORDERED: CLOPIDOGREL 75MG TABLET PO NR (16:15)
[2019-03-12 18:00] VITALS: BP 146/73
[2019-03-12 18:05] VITALS: BP 140/79
[2019-03-12 20:00] VITALS: BP 112/58
[2019-03-12] MEDS ORDERED: INFLUENZA VIRUS VACCINE(AFLURIA) 0.5ML SYR IM ONE (20:00)
[2019-03-12 22:00] VITALS: BP 123/75
[2019-03-12] MEDS ORDERED: CLONIDINE 0.1MG TABLET PO PRN (22:30)
[2019-03-12] MEDS ORDERED: IPRATROPIUM BROMIDE (0.02%) 0.5MG/2.5ML NEB HHN PRN (22:30)
[2019-03-12] MEDS ORDERED: MORPHINE SULFATE 2 MG/ML CPJ (NOT FOR IM USE) IV PRN (22:30)
[2019-03-12] MEDS ORDERED: MAGNESIUM/ALUMINUM HYDROXIDE/SIMETHICONE 30ML UDC PO PRN (22:30)
[2019-03-12] MEDS ORDERED: ONDANSETRON HCL 4MG/2ML INJ IV PRN (22:30)
[2019-03-12] MEDS ORDERED: ACETAMINOPHEN 325MG TABLET PO PRN (22:30)
[2019-03-12] MEDS ORDERED: DIPHENHYDRAMINE 50MG/ML VIAL IV PRN (22:30)
[2019-03-12] MEDS ORDERED: MAGNESIUM HYDROXIDE 400MG/5ML 30ML UDC PO PRN (22:30)
[2019-03-13] VITALS (11 sets, daily range): BP systolic 106–150; BP diastolic 63–98
[2019-03-13] MEDS: DILTIAZEM HCL 30MG TABLET PO SCH ×5 (00:31→23:10)
[2019-03-13] MEDS: SODIUM CHLORIDE 0.9% INJ 3ML FLUSH IVF SCH ×3 (05:03→20:48)
[2019-03-13 07:11] LABS: CREATINE KINASE MB FRACTION 3.5 ng/mL (0.5-3.6)
[2019-03-13] MEDS: APIXABAN 2.5 MG TABLET PO SCH ×2 (08:49→16:32)
[2019-03-13] MEDS: FAMOTIDINE 20MG TABLET PO SCH ×2 (08:49→20:48)
[2019-03-13] MEDS: CLOPIDOGREL 75MG TABLET PO SCH (08:49)
[2019-03-13] MEDS: GUAIFENESIN 200MG/10ML SUGAR FREE UDC PO PRN ×2 (08:55→16:32)
[2019-03-14] VITALS (12 sets, daily range): BP systolic 99–149; BP diastolic 49–99
[2019-03-14] MEDS: SODIUM CHLORIDE 0.9% INJ 3ML FLUSH IVF SCH ×3 (05:04→22:01)
[2019-03-14] MEDS: DILTIAZEM HCL 30MG TABLET PO SCH (05:04)
[2019-03-14 07:43] LABS: CHLORIDE 113 mEq/L (98-107)
[2019-03-14 07:48] LABS: PHOSPHORUS 3.5 mg/dL (2.5-4.9)
[2019-03-14] MEDS: APIXABAN 2.5 MG TABLET PO SCH ×2 (08:27→18:01)
[2019-03-14] MEDS: CARVEDILOL 3.125 MG TABLET PO SCH ×2 (08:27→22:01)
[2019-03-14] MEDS: CLOPIDOGREL 75MG TABLET PO SCH (08:27)
[2019-03-14] MEDS: FAMOTIDINE 20MG TABLET PO SCH ×2 (08:27→22:01)
[2019-03-14] MEDS: FUROSEMIDE 100MG/10ML VIAL IVP SCH (08:27)
[2019-03-14 11:39] LABS: CLARITY URINE CLEAR (CLEAR); COLOR URINE YELLOW (YELLOW); KETONES URINE NEGATIVE (NEGATIVE); LEUKOCYTE ESTERASE URINE NEGATIVE (NEGATIVE); NITRITE URINE NEGATIVE (NEGATIVE); OCCULT BLOOD URINE NEGATIVE (NEGATIVE); PROTEIN URINE NEGATIVE (NEGATIVE); SPECIFIC GRAVITY URINE 1.005 (1.005-1.030); UROBILINOGEN URINE 0.2 E.U./dL (0.2-1.0)
[2019-03-14 13:22] LABS: CREATINE KINASE 63 IU/L (39-308)
[2019-03-15] VITALS (13 sets, daily range): BP systolic 116–147; BP diastolic 60–107
[2019-03-15] MEDS: SODIUM CHLORIDE 0.9% INJ 3ML FLUSH IVF SCH ×3 (06:45→22:00)
[2019-03-15] MEDS: FUROSEMIDE 100MG/10ML VIAL IVP SCH (08:03)
[2019-03-15] MEDS: FAMOTIDINE 20MG TABLET PO SCH ×2 (08:03→20:30)
[2019-03-15] MEDS: CLOPIDOGREL 75MG TABLET PO SCH (08:03)
[2019-03-15] MEDS: APIXABAN 2.5 MG TABLET PO SCH ×2 (08:04→16:24)
[2019-03-15] MEDS: CARVEDILOL 3.125 MG TABLET PO SCH ×2 (08:05→20:30)
[2019-03-15] MEDS ORDERED: HYDR50SY PO (14:56)
[2019-03-15] MEDS ORDERED: ATOR-2 PO (14:56)
[2019-03-15] MEDS ORDERED: LISI2.5T47 PO (14:57)
[2019-03-15] MEDS ORDERED: CLON0.1T PO (14:58)
[2019-03-15] MEDS ORDERED: BUME2TAB7 PO (14:58)
[2019-03-15] MEDS ORDERED: APIX5TAB PO (14:59)
[2019-03-15] MEDS ORDERED: CARV25TA47 PO (15:01)
[2019-03-15] MEDS ORDERED: DIGOXIN 500MCG/2ML AMP IV NR (16:33)
[2019-03-16] VITALS (12 sets, daily range): BP systolic 123–150; BP diastolic 72–100
[2019-03-16] MEDS: SODIUM CHLORIDE 0.9% INJ 3ML FLUSH IVF SCH ×3 (05:56→21:13)
[2019-03-16 07:16] LABS: INR 1.2; PROTHROMBIN TIME 12.5 sec (9.6-11.0)
[2019-03-16 07:35] LABS: CHLORIDE 108 mEq/L (98-107)
[2019-03-16 07:44] LABS: BASOPHILS % 0.5 % (0.0-2.0); EOSINOPHILS % 2.4 % (0.0-5.0); HEMATOCRIT. 49.4 % (42.0-52.0); HEMOGLOBIN. 15.4 g/dL (14.0-18.0); LYMPHOCYTES % 25.2 % (20.0-50.0); MEAN CORPUSCULAR HEMOGLOBIN 28.2 pg (28.0-32.0); MEAN CORPUSCULAR VOLUME 90.8 fL (80.0-94.0); MEAN PLATELET VOLUME 9.8 fl (7.4-10.4); MONOCYTES % 9.4 % (2.0-8.0); NEUTROPHILS % 62.5 % (40.0-76.0); PLATELET 162 x1000/uL (130-400); RED BLOOD CELL COUNT 5.45 mill/uL (4.7-6.1); RED CELL DISTRIBUTION WIDTH 16.8 % (11.6-14.6)
[2019-03-16] MEDS: CARVEDILOL 3.125 MG TABLET PO SCH (08:04)
[2019-03-16] MEDS: FUROSEMIDE 100MG/10ML VIAL IVP SCH (08:04)
[2019-03-16] MEDS: APIXABAN 2.5 MG TABLET PO SCH (08:04)
[2019-03-16] MEDS: FAMOTIDINE 20MG TABLET PO SCH ×2 (08:04→21:13)
[2019-03-16] MEDS: CLOPIDOGREL 75MG TABLET PO SCH (08:04)
[2019-03-16] MEDS ORDERED: DIGOXIN 500MCG/2ML AMP IV NR ×3 (09:15→21:00)
[2019-03-16] MEDS: APIXABAN 5 MG TABLET PO SCH (17:18)
[2019-03-16] MEDS ORDERED: CARVEDILOL 6.25 MG TABLET PO SCH (21:00)
[2019-03-16] MEDS: CARVEDILOL 12.5MG TABLET PO SCH (21:13)
[2019-03-17] VITALS (13 sets, daily range): BP systolic 101–154; BP diastolic 46–103
[2019-03-17] MEDS: SODIUM CHLORIDE 0.9% INJ 3ML FLUSH IVF SCH ×3 (06:19→22:00)
[2019-03-17] MEDS: CLOPIDOGREL 75MG TABLET PO SCH (08:56)
[2019-03-17] MEDS: DIGOXIN 500MCG/2ML AMP IV SCH (08:56)
[2019-03-17] MEDS: APIXABAN 5 MG TABLET PO SCH ×2 (08:56→17:49)
[2019-03-17] MEDS: FUROSEMIDE 100MG/10ML VIAL IVP SCH (08:56)
[2019-03-17] MEDS: FAMOTIDINE 20MG TABLET PO SCH ×2 (08:56→20:06)
[2019-03-17] MEDS: CARVEDILOL 12.5MG TABLET PO SCH ×2 (09:01→20:06)
[2019-03-18 02:00] VITALS: BP 124/76
[2019-03-18 04:00] VITALS: BP 131/90
[2019-03-18] MEDS: SODIUM CHLORIDE 0.9% INJ 3ML FLUSH IVF SCH (05:15)
[2019-03-18 06:00] VITALS: BP 128/88
[2019-03-18 08:00] VITALS: BP 130/92
[2019-03-18 08:17] LABS: CHLORIDE 107 mEq/L (98-107)
[2019-03-18 08:24] LABS: PHOSPHORUS 3.4 mg/dL (2.5-4.9)
[2019-03-18 08:41] LABS: DIGOXIN 1.8 ng/mL (0.9-2.0)
[2019-03-18] MEDS: CLOPIDOGREL 75MG TABLET PO SCH (09:18)
[2019-03-18] MEDS: APIXABAN 5 MG TABLET PO SCH (09:18)
[2019-03-18] MEDS: CARVEDILOL 12.5MG TABLET PO SCH (09:18)
[2019-03-18] MEDS: FAMOTIDINE 20MG TABLET PO SCH (09:18)
[2019-03-18] MEDS: DIGOXIN 500MCG/2ML AMP IV SCH (09:19)
[2019-03-18] MEDS: FUROSEMIDE 100MG/10ML VIAL IVP SCH (09:39)
[2019-03-18 10:00] VITALS: BP 123/80
[2019-03-18 10:16] VITALS: BP 130/90
== END 2019-03-18 11:51 | disposition home or self-care (01) | DRG 201 ==
LOC: ER 06:43 → 3WST 09:35 → ENRESERV 15:35
PROVIDERS: ADMIT Internal Medicine; ATTEND Internal Medicine
DX: I48.91 Unspecified atrial fibrillation (principal); I21.4 Non-ST elevation (NSTEMI) myocardial infarction; N17.0 Acute kidney failure with tubular necrosis; I47.2 Ventricular tachycardia; I50.23 Acute on chronic systolic (congestive) heart failure; I13.0 Hypertensive heart and chronic kidney disease with heart failure and stage 1 through stage 4 chronic kidney disease, or unspecified chronic kidney disease; K57.30 Diverticulosis of large intestine without perforation or abscess without bleeding; I25.10 Atherosclerotic heart disease of native coronary artery without angina pectoris; I48.92 Unspecified atrial flutter; J44.9 Chronic obstructive pulmonary disease, unspecified; N18.9 Chronic kidney disease, unspecified; Z79.01 Long term (current) use of anticoagulants; Z79.02 Long term (current) use of antithrombotics/antiplatelets; I25.2 Old myocardial infarction; Z79.899 Other long term (current) drug therapy; Z87.891 Personal history of nicotine dependence; Z95.5 Presence of coronary angioplasty implant and graft
CPT/HCPCS: 36415; 71045; 74176; 76770; 78582; 80048; 80053; 80061; 80162; 81003; 82550; 82553; 83036; 83735; 83880; 84100; 84439; 84443; 84484; 85025; 85379; 90686; 93005; 93306; 93970; 94640; 99285; A9558; J1160; J1200; J1940; J2270; J2405

== ENCOUNTER 2019-03-26 03:45 | Inpatient (IN) | payer MEDICAID ==
[~2019-03-26] VITALS: Ht 165.1 cm; Wt 95.3 kg
[~2019-03-26 03:45] MED LIST changes: +APIX5TAB PO; -ASPI-1497 MT; +ATOR-2 PO; -FURO-151 MT; -POTA8CAP20 MT
[2019-03-26] MEDS ORDERED: FUROSEMIDE 40MG/4ML VIAL IVP ONE (05:15)
[2019-03-26] MEDS ORDERED: DILTIAZEM HCL 5MG/ML 5ML VIAL IV ONE (05:15)
[2019-03-26] MEDS ORDERED: CLONIDINE 0.2MG TABLET PO ONE (05:15)
[2019-03-26 05:18] LABS: BASOPHILS % 0.7 % (0.0-2.0); EOSINOPHILS % 1.6 % (0.0-5.0); HEMATOCRIT. 46.1 % (42.0-52.0); HEMOGLOBIN. 15.2 g/dL (14.0-18.0); LYMPHOCYTES % 21.9 % (20.0-50.0); MEAN CORPUSCULAR HEMOGLOBIN 29.4 pg (28.0-32.0); MEAN PLATELET VOLUME 10.2 fl (7.4-10.4); MONOCYTES % 7.7 % (2.0-8.0); NEUTROPHILS % 68.1 % (40.0-76.0); PLATELET 170 x1000/uL (130-400); RED BLOOD CELL COUNT 5.18 mill/uL (4.7-6.1); RED CELL DISTRIBUTION WIDTH 15.5 % (11.6-14.6)
[2019-03-26 06:17] LABS: CHLORIDE 114 mEq/L (98-107)
[2019-03-26] MEDS: LOSARTAN POTASSIUM 25 MG TABLET PO SCH (16:25)
[2019-03-26] MEDS: APIXABAN 5 MG TABLET PO SCH (16:25)
[2019-03-26 21:10] VITALS: BP 140/104
[2019-03-26] MEDS: NITROGLYCERIN OINT 1GM/INCH UDPKT TD SCH (22:23)
[2019-03-26] MEDS: FUROSEMIDE 40MG/4ML VIAL IVP SCH (22:23)
[2019-03-26] MEDS: POTASSIUM CHLORIDE 20MEQ TABLET SR PO SCH (22:24)
[2019-03-26] MEDS: CARVEDILOL 3.125 MG TABLET PO SCH (22:24)
[2019-03-26] MEDS ORDERED: LISINOPRIL 20MG TABLET PO NR (23:45)
[2019-03-26] MEDS ORDERED: IPRATROPIUM/ALBUTEROL 0.5-3(2.5)MG/3ML NEB HHN PRN (23:45)
[2019-03-27] VITALS: BP 152/105
[2019-03-27] MEDS ORDERED: FURO80TA87 MT (01:00)
[2019-03-27] MEDS ORDERED: LISI2.5T47 MT (01:00)
[2019-03-27] MEDS ORDERED: ALBU05 NEB (01:00)
[2019-03-27] MEDS ORDERED: CLONIDINE 0.1MG TABLET PO PRN (03:15)
[2019-03-27 04:00] VITALS: BP 141/85
[2019-03-27] MEDS: NITROGLYCERIN OINT 1GM/INCH UDPKT TD SCH ×3 (06:43→21:47)
[2019-03-27 07:37] LABS: BASOPHILS % 0.9 % (0.0-2.0); EOSINOPHILS % 3.2 % (0.0-5.0); HEMATOCRIT. 40.5 % (42.0-52.0); LYMPHOCYTES % 29.5 % (20.0-50.0); MEAN CORPUSCULAR HEMOGLOBIN 28.3 pg (28.0-32.0); MEAN CORPUSCULAR VOLUME 88.1 fL (80.0-94.0); MEAN PLATELET VOLUME 10.4 fl (7.4-10.4); MONOCYTES % 9.6 % (2.0-8.0); NEUTROPHILS % 56.8 % (40.0-76.0); PLATELET 148 x1000/uL (130-400); RED CELL DISTRIBUTION WIDTH 15.2 % (11.6-14.6)
[2019-03-27 08:00] VITALS: BP 127/91
[2019-03-27 08:13] LABS: CHLORIDE 111 mEq/L (98-107)
[2019-03-27] MEDS ORDERED: ENOXAPARIN 40MG/0.4ML SYR SUBCUT SCH (09:00)
[2019-03-27] MEDS ORDERED: ENOXAPARIN 30MG/0.3ML SYR SUBCUT SCH (09:00)
[2019-03-27] MEDS: ALBUTEROL (0.083%) 2.5MG/3ML NEB HHN SCH (09:28)
[2019-03-27] MEDS: FUROSEMIDE 40MG/4ML VIAL IVP SCH ×2 (09:50→21:45)
[2019-03-27] MEDS: CARVEDILOL 3.125 MG TABLET PO SCH ×2 (09:51→21:46)
[2019-03-27] MEDS: APIXABAN 5 MG TABLET PO SCH ×2 (09:51→18:35)
[2019-03-27] MEDS: POTASSIUM CHLORIDE 20MEQ TABLET SR PO SCH ×2 (09:51→21:45)
[2019-03-27] MEDS: LOSARTAN POTASSIUM 25 MG TABLET PO SCH (09:51)
[2019-03-27 12:00] VITALS: BP 122/74
[2019-03-27] MEDS: ACETAMINOPHEN 325MG TABLET PO PRN (14:24)
[2019-03-27 16:00] VITALS: BP 123/84
[2019-03-27 20:00] VITALS: BP 144/99
[2019-03-28] VITALS: BP 141/92
[2019-03-28] MEDS: ACETAMINOPHEN 325MG TABLET PO PRN (03:37)
[2019-03-28 04:00] VITALS: BP 131/92
[2019-03-28] MEDS: NITROGLYCERIN OINT 1GM/INCH UDPKT TD SCH (06:58)
[2019-03-28 07:54] LABS: BASOPHILS % 0.8 % (0.0-2.0); EOSINOPHILS % 3.7 % (0.0-5.0); HEMATOCRIT. 42.1 % (42.0-52.0); HEMOGLOBIN. 13.6 g/dL (14.0-18.0); LYMPHOCYTES % 26.3 % (20.0-50.0); MEAN CORPUSCULAR HEMOGLOBIN 28.4 pg (28.0-32.0); MEAN PLATELET VOLUME 10.5 fl (7.4-10.4); MONOCYTES % 10.2 % (2.0-8.0); PLATELET 152 x1000/uL (130-400); RED BLOOD CELL COUNT 4.79 mill/uL (4.7-6.1)
[2019-03-28 08:00] VITALS: BP 134/78
[2019-03-28 08:19] LABS: CHLORIDE 110 mEq/L (98-107)
[2019-03-28] MEDS: LOSARTAN POTASSIUM 25 MG TABLET PO SCH (08:28)
[2019-03-28] MEDS: APIXABAN 5 MG TABLET PO SCH (08:28)
[2019-03-28] MEDS: CARVEDILOL 3.125 MG TABLET PO SCH (08:28)
[2019-03-28] MEDS: POTASSIUM CHLORIDE 20MEQ TABLET SR PO SCH (08:28)
[2019-03-28] MEDS: ALBUTEROL (0.083%) 2.5MG/3ML NEB HHN SCH (09:16)
[2019-03-28] MEDS: FUROSEMIDE 40MG/4ML VIAL IVP SCH (10:18)
[2019-03-28 12:00] VITALS: BP 129/82
[2019-03-28 13:07] VITALS: BP 129/82
== END 2019-03-28 14:40 | disposition home or self-care (01) | DRG 133 ==
LOC: ER 03:45 → 5WST 05:35 → ENRESERV 13:49 → CANRESERV 13:49 → ENRESERV 18:33
PROVIDERS: ADMIT Internal Medicine; ATTEND Internal Medicine
DX: J96.01 Acute respiratory failure with hypoxia (principal); I50.23 Acute on chronic systolic (congestive) heart failure; I42.9 Cardiomyopathy, unspecified; I48.19 Other persistent atrial fibrillation; J44.9 Chronic obstructive pulmonary disease, unspecified; I25.10 Atherosclerotic heart disease of native coronary artery without angina pectoris; N18.9 Chronic kidney disease, unspecified; E78.5 Hyperlipidemia, unspecified; I13.0 Hypertensive heart and chronic kidney disease with heart failure and stage 1 through stage 4 chronic kidney disease, or unspecified chronic kidney disease; I25.2 Old myocardial infarction; Z79.01 Long term (current) use of anticoagulants; Z87.891 Personal history of nicotine dependence; Z95.5 Presence of coronary angioplasty implant and graft; Z79.899 Other long term (current) drug therapy; Z82.3 Family history of stroke; Z82.49 Family history of ischemic heart disease and other diseases of the circulatory system
CPT/HCPCS: 36415; 71045; 80048; 80053; 83880; 84484; 85025; 93005; 99291; J1940; J3490

== ENCOUNTER 2019-05-26 09:47 | Emergency (ER) | payer MEDICAID ==
[~2019-05-26] VITALS: Ht 182.9 cm; Wt 104.0 kg
[~2019-05-26 09:47] MED LIST changes: +ALBU05 NEB; -APIX5TAB PO; -ATOR-2 PO; +FURO80TA87 MT; +LISI2.5T47 MT
[2019-05-26] MEDS ORDERED: FUROSEMIDE 40MG TABLET PO ONE (11:15)
[2019-05-26 12:02] VITALS: BP 132/89
== END 2019-05-26 12:03 | disposition home or self-care (01) ==
LOC: ER 10:04
DX: I11.0 Hypertensive heart disease with heart failure (principal); I50.9 Heart failure, unspecified; Z98.890 Other specified postprocedural states; Z79.899 Other long term (current) drug therapy; R06.02 Shortness of breath; R05 Cough
CPT/HCPCS: 71045; 93005; 99283

== ENCOUNTER 2019-09-15 15:12 | Inpatient (IN) | payer MEDICAID ==
[~2019-09-15] VITALS: Ht 177.8 cm; Wt 112.0 kg
[2019-09-15] MEDS ORDERED: NITROGLYCERIN OINT 1GM/INCH UDPKT TD ONE (16:00)
[2019-09-15] MEDS ORDERED: FUROSEMIDE 40MG/4ML VIAL IVP ONE (16:00)
[2019-09-15 16:35] LABS: CHLORIDE 111 mEq/L (98-107)
[2019-09-15 16:48] LABS: BASOPHILS % 0.8 % (0.0-2.0); EOSINOPHILS % 1.4 % (0.0-5.0); HEMATOCRIT. 48.8 % (42.0-52.0); HEMOGLOBIN. 15.7 g/dL (14.0-18.0); LYMPHOCYTES % 26.3 % (20.0-50.0); MEAN CORPUSCULAR HEMOGLOBIN 28.9 pg (28.0-32.0); MEAN CORPUSCULAR VOLUME 90.1 fL (80.0-94.0); MEAN PLATELET VOLUME 10.5 fl (7.4-10.4); MONOCYTES % 12.1 % (2.0-8.0); NEUTROPHILS % 59.4 % (40.0-76.0); PLATELET 147 x1000/uL (130-400); RED BLOOD CELL COUNT 5.41 mill/uL (4.7-6.1); RED CELL DISTRIBUTION WIDTH 15.4 % (11.6-14.6)
[2019-09-15] MEDS ORDERED: ENOXAPARIN 40MG/0.4ML SYR SUBCUT SCH (19:00)
[2019-09-15] MEDS ORDERED: LORAZEPAM 2MG/ML CPJ IV PRN (19:00)
[2019-09-15] MEDS ORDERED: DIPHENHYDRAMINE 50MG/ML VIAL IV PRN (19:00)
[2019-09-15] MEDS ORDERED: ACETAMINOPHEN 325MG TABLET PO PRN (19:00)
[2019-09-15] MEDS ORDERED: HYDROCODONE/ACETAMINOPHEN 10/325MG TABLET PO PRN (19:00)
[2019-09-15] MEDS ORDERED: MAGNESIUM/ALUMINUM HYDROXIDE/SIMETHICONE 30ML UDC PO PRN (19:00)
[2019-09-15] MEDS ORDERED: DOCUSATE SODIUM 100MG CAPSULE PO PRN (19:00)
[2019-09-15] MEDS ORDERED: HYDRALAZINE 20MG/ML VIAL IV PRN (19:00)
[2019-09-15] MEDS ORDERED: IPRATROPIUM/ALBUTEROL 0.5-3(2.5)MG/3ML NEB HHN PRN (19:00)
[2019-09-15] MEDS ORDERED: CLONIDINE 0.1MG TABLET PO PRN (19:00)
[2019-09-15] MEDS ORDERED: MORPHINE SULFATE 2 MG/ML CPJ (NOT FOR IM USE) IV PRN (19:00)
[2019-09-15] MEDS ORDERED: GUAIFENESIN 200MG/10ML SUGAR FREE UDC PO PRN (19:00)
[2019-09-15] MEDS ORDERED: ONDANSETRON HCL 4MG/2ML INJ IV PRN (19:00)
[2019-09-15 20:55] VITALS: BP 120/93
[2019-09-15 21:00] VITALS: BP 120/92
[2019-09-15] MEDS: SODIUM CHLORIDE 0.9% INJ 3ML FLUSH IVF SCH (21:43)
[2019-09-15] MEDS: ASPIRIN 81MG EC TABLET PO SCH (21:43)
[2019-09-15 22:00] VITALS: BP 120/92
[2019-09-16] VITALS: BP 126/88
[2019-09-16 01:27] LABS: CREATINE KINASE MB FRACTION 1.7 ng/mL (0.5-3.6)
[2019-09-16 04:00] VITALS: BP 133/88
[2019-09-16] MEDS: SODIUM CHLORIDE 0.9% INJ 3ML FLUSH IVF SCH ×3 (06:55→22:03)
[2019-09-16 07:13] LABS: BASOPHILS % 0.6 % (0.0-2.0); EOSINOPHILS % 1.8 % (0.0-5.0); HEMATOCRIT. 47.7 % (42.0-52.0); HEMOGLOBIN. 15.4 g/dL (14.0-18.0); LYMPHOCYTES % 29.3 % (20.0-50.0); MEAN CORPUSCULAR HEMOGLOBIN 29.3 pg (28.0-32.0); MEAN CORPUSCULAR VOLUME 90.6 fL (80.0-94.0); MEAN PLATELET VOLUME 10.3 fl (7.4-10.4); MONOCYTES % 11.9 % (2.0-8.0); NEUTROPHILS % 56.4 % (40.0-76.0); PLATELET 145 x1000/uL (130-400); RED BLOOD CELL COUNT 5.26 mill/uL (4.7-6.1); RED CELL DISTRIBUTION WIDTH 15.4 % (11.6-14.6)
[2019-09-16 08:00] VITALS: BP 149/100
[2019-09-16 08:13] LABS: CHLORIDE 108 mEq/L (98-107)
[2019-09-16] MEDS: ASPIRIN 81MG EC TABLET PO SCH (08:14)
[2019-09-16 08:30] LABS: CREATINE KINASE 71 IU/L (39-308)
[2019-09-16 08:34] LABS: CREATINE KINASE MB FRACTION 1.7 ng/mL (0.5-3.6)
[2019-09-16] MEDS ORDERED: FUROSEMIDE 40MG/4ML VIAL IV SCH (09:00)
[2019-09-16] MEDS: APIXABAN 5 MG TABLET PO SCH ×2 (10:42→17:12)
[2019-09-16 10:50] LABS: T4 FREE 1.24 ng/dL (0.76-1.46)
[2019-09-16 11:52] LABS: D-DIMER 1.25 mg/L FEU (<0.50); INR 1.3; PROTHROMBIN TIME 13.8 sec (9.6-11.0)
[2019-09-16 12:00] VITALS: BP 125/99
[2019-09-16 16:00] VITALS: BP 138/89
[2019-09-16] MEDS ORDERED: DIPHENHYDRAMINE 50MG/ML VIAL IV PRN (16:45)
[2019-09-16] MEDS ORDERED: GUAIFENESIN 200MG/10ML SUGAR FREE UDC PO PRN (16:45)
[2019-09-16] MEDS ORDERED: LORAZEPAM 2MG/ML CPJ IV PRN (16:45)
[2019-09-16] MEDS ORDERED: DOCUSATE SODIUM 100MG CAPSULE PO PRN (16:45)
[2019-09-16] MEDS ORDERED: HYDRALAZINE 20MG/ML VIAL IV PRN (16:45)
[2019-09-16] MEDS ORDERED: MAGNESIUM/ALUMINUM HYDROXIDE/SIMETHICONE 30ML UDC PO PRN (16:45)
[2019-09-16] MEDS ORDERED: ONDANSETRON HCL 4MG/2ML INJ IV PRN (16:45)
[2019-09-16] MEDS ORDERED: ACETAMINOPHEN 325MG TABLET PO PRN (16:45)
[2019-09-16] MEDS ORDERED: CLONIDINE 0.1MG TABLET PO PRN (16:45)
[2019-09-16] MEDS ORDERED: IPRATROPIUM/ALBUTEROL 0.5-3(2.5)MG/3ML NEB HHN PRN (16:45)
[2019-09-16 20:00] VITALS: BP 122/94
[2019-09-17] VITALS: BP 126/98
[2019-09-17 04:00] VITALS: BP 133/99
[2019-09-17 05:55] LABS: BASOPHILS % 0.5 % (0.0-2.0); HEMATOCRIT. 43.4 % (42.0-52.0); HEMOGLOBIN. 13.8 g/dL (14.0-18.0); LYMPHOCYTES % 24.9 % (20.0-50.0); MEAN CORPUSCULAR HEMOGLOBIN 28.7 pg (28.0-32.0); MEAN CORPUSCULAR VOLUME 90.4 fL (80.0-94.0); MEAN PLATELET VOLUME 10.2 fl (7.4-10.4); MONOCYTES % 10.3 % (2.0-8.0); NEUTROPHILS % 62.3 % (40.0-76.0); PLATELET 122 x1000/uL (130-400); RED BLOOD CELL COUNT 4.81 mill/uL (4.7-6.1); RED CELL DISTRIBUTION WIDTH 15.3 % (11.6-14.6)
[2019-09-17] MEDS: SODIUM CHLORIDE 0.9% INJ 3ML FLUSH IVF SCH ×3 (06:03→21:04)
[2019-09-17 06:10] LABS: CHLORIDE 109 mEq/L (98-107)
[2019-09-17 08:00] VITALS: BP 123/95
[2019-09-17] MEDS ORDERED: FUROSEMIDE 40MG/4ML VIAL IV SCH (09:00)
[2019-09-17] MEDS: APIXABAN 5 MG TABLET PO SCH ×2 (09:31→17:53)
[2019-09-17] MEDS: ASPIRIN 81MG EC TABLET PO SCH (09:31)
[2019-09-17 12:00] VITALS: BP 135/94
[2019-09-17] MEDS: FUROSEMIDE 40MG/4ML VIAL IV SCH ×2 (14:57→17:53)
[2019-09-17 16:00] VITALS: BP 145/118
[2019-09-17 20:00] VITALS: BP 126/96
[2019-09-18] VITALS: BP 123/94
[2019-09-18] MEDS: MORPHINE SULFATE 2 MG/ML CPJ (NOT FOR IM USE) IV PRN (03:57)
[2019-09-18 04:00] VITALS: BP 152/92
[2019-09-18] MEDS: SODIUM CHLORIDE 0.9% INJ 3ML FLUSH IVF SCH ×3 (05:28→21:30)
[2019-09-18] MEDS: FUROSEMIDE 40MG/4ML VIAL IV SCH ×2 (06:15→17:06)
[2019-09-18 08:00] VITALS: BP 127/85
[2019-09-18] MEDS: ASPIRIN 81MG EC TABLET PO SCH (09:49)
[2019-09-18] MEDS: APIXABAN 5 MG TABLET PO SCH ×2 (09:49→17:06)
[2019-09-18 13:00] VITALS: BP 116/85
[2019-09-18 16:00] VITALS: BP 118/67
[2019-09-18 20:00] VITALS: BP 116/88
[2019-09-19] VITALS: BP 121/78
[2019-09-19 04:00] VITALS: BP 124/87
[2019-09-19] MEDS: SODIUM CHLORIDE 0.9% INJ 3ML FLUSH IVF SCH ×3 (05:39→23:36)
[2019-09-19] MEDS: FUROSEMIDE 40MG/4ML VIAL IV SCH ×2 (06:25→16:54)
[2019-09-19 06:59] LABS: CHLORIDE 107 mEq/L (98-107)
[2019-09-19 07:11] LABS: BASOPHILS % 0.3 % (0.0-2.0); EOSINOPHILS % 1.6 % (0.0-5.0); HEMATOCRIT. 44.6 % (42.0-52.0); HEMOGLOBIN. 14.3 g/dL (14.0-18.0); LYMPHOCYTES % 27.2 % (20.0-50.0); MEAN CORPUSCULAR HEMOGLOBIN 28.8 pg (28.0-32.0); MEAN PLATELET VOLUME 10.5 fl (7.4-10.4); NEUTROPHILS % 57.9 % (40.0-76.0); PLATELET 130 x1000/uL (130-400); RED BLOOD CELL COUNT 4.96 mill/uL (4.7-6.1)
[2019-09-19 08:10] VITALS: BP 128/89
[2019-09-19] MEDS: MORPHINE SULFATE 2 MG/ML CPJ (NOT FOR IM USE) IV PRN (08:11)
[2019-09-19] MEDS: APIXABAN 5 MG TABLET PO SCH ×2 (08:11→16:54)
[2019-09-19] MEDS: ASPIRIN 81MG EC TABLET PO SCH (08:11)
[2019-09-19 12:00] VITALS: BP 131/88
[2019-09-19 16:00] VITALS: BP 127/89
[2019-09-19 20:00] VITALS: BP 125/90
[2019-09-19] MEDS: ZOLPIDEM TARTRATE 5MG TABLET PO PRN (23:36)
[2019-09-20] VITALS (7 sets, daily range): BP systolic 110–135; BP diastolic 73–104
[2019-09-20] MEDS: MORPHINE SULFATE 2 MG/ML CPJ (NOT FOR IM USE) IV PRN (06:06)
[2019-09-20] MEDS: SODIUM CHLORIDE 0.9% INJ 3ML FLUSH IVF SCH ×3 (06:12→20:51)
[2019-09-20 06:58] LABS: BASOPHILS % 0.6 % (0.0-2.0); EOSINOPHILS % 1.2 % (0.0-5.0); HEMATOCRIT. 47.3 % (42.0-52.0); HEMOGLOBIN. 15.2 g/dL (14.0-18.0); LYMPHOCYTES % 31.3 % (20.0-50.0); MEAN CORPUSCULAR HEMOGLOBIN 28.9 pg (28.0-32.0); MEAN CORPUSCULAR VOLUME 90.1 fL (80.0-94.0); MEAN PLATELET VOLUME 10.4 fl (7.4-10.4); NEUTROPHILS % 55.9 % (40.0-76.0); PLATELET 130 x1000/uL (130-400); RED BLOOD CELL COUNT 5.26 mill/uL (4.7-6.1)
[2019-09-20 07:15] LABS: CHLORIDE 108 mEq/L (98-107)
[2019-09-20] MEDS: APIXABAN 5 MG TABLET PO SCH ×2 (09:45→17:26)
[2019-09-20] MEDS: FUROSEMIDE 40MG/4ML VIAL IV SCH ×2 (09:45→17:26)
[2019-09-20] MEDS: ASPIRIN 81MG EC TABLET PO SCH (09:45)
[2019-09-20] MEDS ORDERED: DIGOXIN 125MCG TABLET PO SCH (18:00)
[2019-09-20] MEDS: AMIODARONE HCL 200 MG TABLET PO SCH (20:51)
[2019-09-21] VITALS (7 sets, daily range): BP systolic 112–146; BP diastolic 64–103
[2019-09-21] MEDS: HYDROCODONE/ACETAMINOPHEN 10/325MG TABLET PO PRN ×2 (01:08→08:04)
[2019-09-21] MEDS: SODIUM CHLORIDE 0.9% INJ 3ML FLUSH IVF SCH ×3 (06:05→22:44)
[2019-09-21] MEDS: FUROSEMIDE 40MG/4ML VIAL IV SCH ×2 (06:05→17:48)
[2019-09-21] MEDS: ASPIRIN 81MG EC TABLET PO SCH (08:02)
[2019-09-21] MEDS: AMIODARONE HCL 200 MG TABLET PO SCH ×2 (08:02→20:15)
[2019-09-21] MEDS: APIXABAN 5 MG TABLET PO SCH ×2 (08:02→17:49)
[2019-09-21] MEDS: MORPHINE SULFATE 2 MG/ML CPJ (NOT FOR IM USE) IV PRN (17:42)
[2019-09-22] VITALS: BP 122/95
[2019-09-22 04:00] VITALS: BP 125/86
[2019-09-22] MEDS: SODIUM CHLORIDE 0.9% INJ 3ML FLUSH IVF SCH ×3 (06:37→21:30)
[2019-09-22] MEDS: FUROSEMIDE 40MG/4ML VIAL IV SCH (06:45)
[2019-09-22 08:13] VITALS: BP 111/91
[2019-09-22] MEDS: ASPIRIN 81MG EC TABLET PO SCH (08:53)
[2019-09-22] MEDS: APIXABAN 5 MG TABLET PO SCH ×2 (08:53→16:26)
[2019-09-22] MEDS: AMIODARONE HCL 200 MG TABLET PO SCH ×2 (09:09→21:30)
[2019-09-22 12:04] VITALS: BP 124/89
[2019-09-22 16:00] VITALS: BP 110/89
[2019-09-22] MEDS: FUROSEMIDE 100MG/10ML VIAL IVP SCH (16:26)
[2019-09-22] MEDS: MORPHINE SULFATE 2 MG/ML CPJ (NOT FOR IM USE) IV PRN (18:34)
[2019-09-22 20:00] VITALS: BP 110/70
[2019-09-23] VITALS: BP 109/81
[2019-09-23] MEDS: ZOLPIDEM TARTRATE 5MG TABLET PO PRN (00:06)
[2019-09-23 04:00] VITALS: BP 108/88
[2019-09-23] MEDS: FUROSEMIDE 100MG/10ML VIAL IVP SCH ×2 (06:16→17:39)
[2019-09-23] MEDS: SODIUM CHLORIDE 0.9% INJ 3ML FLUSH IVF SCH ×2 (06:16→14:43)
[2019-09-23 08:00] VITALS: BP 129/91
[2019-09-23] MEDS: ASPIRIN 81MG EC TABLET PO SCH (08:53)
[2019-09-23] MEDS: POTASSIUM CHLORIDE 20MEQ TABLET SR PO SCH (08:53)
[2019-09-23] MEDS: AMIODARONE HCL 200 MG TABLET PO SCH ×2 (08:53→20:18)
[2019-09-23] MEDS: APIXABAN 5 MG TABLET PO SCH ×2 (08:53→17:39)
[2019-09-23] MEDS: MORPHINE SULFATE 2 MG/ML CPJ (NOT FOR IM USE) IV PRN (08:54)
[2019-09-23 12:00] VITALS: BP 137/68
[2019-09-23] MEDS: HYDROCODONE/ACETAMINOPHEN 10/325MG TABLET PO PRN (12:42)
[2019-09-23 16:00] VITALS: BP 112/81
[2019-09-23 20:00] VITALS: BP 119/88
[2019-09-24] VITALS: BP 127/85
[2019-09-24] MEDS: ZOLPIDEM TARTRATE 5MG TABLET PO PRN (00:31)
[2019-09-24] MEDS: SODIUM CHLORIDE 0.9% INJ 3ML FLUSH IVF SCH ×4 (00:32→22:43)
[2019-09-24 04:00] VITALS: BP 125/84
[2019-09-24] MEDS: FUROSEMIDE 100MG/10ML VIAL IVP SCH ×2 (06:26→16:42)
[2019-09-24 07:51] LABS: EOSINOPHILS % 0.4 % (0.0-5.0); HEMATOCRIT. 46.9 % (42.0-52.0); LYMPHOCYTES % 23.3 % (20.0-50.0); MEAN CORPUSCULAR HEMOGLOBIN 28.4 pg (28.0-32.0); MEAN PLATELET VOLUME 11.1 fl (7.4-10.4); MONOCYTES % 14.4 % (2.0-8.0); NEUTROPHILS % 60.9 % (40.0-76.0); PLATELET 169 x1000/uL (130-400); RED BLOOD CELL COUNT 5.27 mill/uL (4.7-6.1); RED CELL DISTRIBUTION WIDTH 14.4 % (11.6-14.6)
[2019-09-24 08:00] VITALS: BP 125/90
[2019-09-24] MEDS: ASPIRIN 81MG EC TABLET PO SCH (09:20)
[2019-09-24] MEDS: APIXABAN 5 MG TABLET PO SCH ×2 (09:20→16:34)
[2019-09-24] MEDS: POTASSIUM CHLORIDE 20MEQ TABLET SR PO SCH (09:20)
[2019-09-24] MEDS: AMIODARONE HCL 200 MG TABLET PO SCH ×2 (09:20→22:43)
[2019-09-24] MEDS ORDERED: LIDOCAINE HCL/PF 1% 2ML VIAL ONE (10:01)
[2019-09-24 11:51] LABS: BG BASE EXCESS -2.4 mmol/L (-2.0-2.0); BG CARBOXYHEMOGLOBIN 0.7 % (0.5-1.5); BG DEOXYHEMOGLOBIN 16.8 % (0.0-5.0); BG FRACTION INSPIRED OXYGEN 21; BG HCO3 ACT 22.4 mmol/L (22.0-26.0); BG METHEMOGLOBIN 0.3 % (0.0-1.5); BG OXYHEMOGLOBIN 82.2 % (94.0-97.0); BG PCO2 38.8 mmHg (35.0-45.0); BG PH 7.379 (7.350-7.450); BG PO2 50.7 mmHg (75.0-100.0); BG SAMPLE SITE RIGHT RADIAL; BG TOTAL HEMOGLOBIN 16.1 g/dL (12.0-18.0); BG VENT MODE ROOM AIR
[2019-09-24 12:00] VITALS: BP 123/88
[2019-09-24 16:00] VITALS: BP 133/79
[2019-09-24] MEDS: HYDROCODONE/ACETAMINOPHEN 10/325MG TABLET PO PRN (16:41)
[2019-09-24 20:00] VITALS: BP 109/88
[2019-09-25] VITALS: BP 115/85
[2019-09-25] MEDS: MORPHINE SULFATE 2 MG/ML CPJ (NOT FOR IM USE) IV PRN (01:35)
[2019-09-25 04:00] VITALS: BP 121/90
[2019-09-25] MEDS: SODIUM CHLORIDE 0.9% INJ 3ML FLUSH IVF SCH ×2 (06:25→14:40)
[2019-09-25] MEDS: FUROSEMIDE 100MG/10ML VIAL IVP SCH (06:25)
[2019-09-25 08:00] VITALS: BP 141/79
[2019-09-25] MEDS: AMIODARONE HCL 200 MG TABLET PO SCH (08:52)
[2019-09-25] MEDS: APIXABAN 5 MG TABLET PO SCH (08:52)
[2019-09-25] MEDS: ASPIRIN 81MG EC TABLET PO SCH (08:53)
[2019-09-25] MEDS: POTASSIUM CHLORIDE 20MEQ TABLET SR PO SCH (08:53)
[2019-09-25 12:00] VITALS: BP 121/47
[2019-09-25 15:56] VITALS: BP 121/50
== END 2019-09-25 16:25 | disposition home or self-care (01) | DRG 194 ==
LOC: ER 15:12 → 5WST 17:23 → EDBEDREQ 17:26 → EDBEDREQTM 17:26 → ENRESERV 19:39
PROVIDERS: ADMIT Internal Medicine; ATTEND Internal Medicine
DX: I11.0 Hypertensive heart disease with heart failure (principal); J96.00 Acute respiratory failure, unspecified whether with hypoxia or hypercapnia; I50.23 Acute on chronic systolic (congestive) heart failure; I48.91 Unspecified atrial fibrillation; N17.9 Acute kidney failure, unspecified; I25.10 Atherosclerotic heart disease of native coronary artery without angina pectoris; G47.00 Insomnia, unspecified; I08.1 Rheumatic disorders of both mitral and tricuspid valves; T50.1X5A Adverse effect of loop [high-ceiling] diuretics, initial encounter; M25.571 Pain in right ankle and joints of right foot; E87.5 Hyperkalemia; Z79.01 Long term (current) use of anticoagulants; Z79.899 Other long term (current) drug therapy; R65.11 Systemic inflammatory response syndrome (SIRS) of non-infectious origin with acute organ dysfunction
CPT/HCPCS: 36415; 36600; 71045; 80048; 80053; 80061; 82375; 82550; 82553; 82805; 83036; 83880; 84439; 84443; 84484; 85025; 85379; 93005; 93306; 93970; 94640; 96372; 99285; J1650; J1940; J2270; J3490